=== PATIENT | male | born 1970 | race Caucasian/White ===

== ENCOUNTER 2025-06-27 22:23 | Outpatient (BNV) | payer OTHER, SELFPAY | END 2025-06-28 14:42 | PROVIDERS: Admitting Provider Psychiatry & Neurology Psychiatry; Visit Provider Internal Medicine | DX: I45.10 Unspecified right bundle-branch block (principal); R00.1 Bradycardia, unspecified | CPT/HCPCS: 93010 ==

== ENCOUNTER 2025-06-27 22:23 | Inpatient (IN) | payer OTHER, SELFPAY ==
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
--- OUTSIDE RECORDS SUMMARY | 2025-06-27 22:29 | XMS_ITS | Encounter Summary ---
Author Organization [facility] Address [address] [place] [address] Care Team Providers Care Shipping Receiving Manager Name Role Phone Adalberto Salinas Unavailable ShannanAdalberto garcia Primary Care Provider [phone] Nikita Yao [employer] SPLICER Primary Care Provider [phone] Encounter Details Date Type Department Care Team (Late st Contact Info) Description 06/16/2015 Lab Requisition [facility] [address] [place] [phone] Danna Jade NP [address] [place] [address] Encounter for general adult medical examination without abnormal findings Social History Tobacco Use Types Packs/Day Years Used Date Smoking Tobacco: Every Day Alcohol Use Standard Drinks/Week Comments No 0 (1 standard drink = 0.6 oz pur e alcohol) Sex and Gender Information Value Date Recorded Sex Assigned at Male 05/22/2024 1:18 AM EDT Legal Sex Male 6:53 PM EDT Gender Identity Male 05/22/2024 1:18 AM EDT Sexual Orientation _I choose not to answer 01/27 9:03 AM EDT documented as of this encounter Plan of Treatment Not on file documented as of this encounter Procedures Procedure Name Priority Date/Time Associated Diagnosis Comments URINE CULTURE AND COLONY COUNT Routine 06/16/2015 1:22 PM EDT Encounter for general adult medical examination without abnormal findings documented in this encounter Results * Urine Culture and Wiley Count (06/16/2015 1:22 PM EDT) Culture < 10,000 colonies/ml Mixed Gram Positive Organisms 06/17/2015 2:25 PM EDT [facility] Urine specimen (specimen) Urine specimen obtained by clean catch procedure / Unknown Collection / Unknown 06/16/2015 1:22 PM EDT 06/16/2015 1:22 PM EDT Danna Jade NP MICROBIOLOGY - GENERAL ORDERAB LES Final Result [facility] [address] [place] [address] documented in this encounter Visit Diagnoses Diagnosis Encounter for general adult medical examination without abnormal findings documented in this encounter Care Teams Shipping Receiving Manager Relationship Specialty Start Date End Date Adalberto Salinas [address] [place] [address] PCP - Family Medicine 05/20/15 05/19/21 Adalberto Salinas [address] [place] [address] PCP - General 05/20/15 05/19/21 Nikita Yao NP [address] [place] [address] PCP - General Family Medicine 05/20/21 documented as of this encounter
--- OUTSIDE RECORDS SUMMARY | 2025-06-27 22:29 | XMS_ITS | Clinical Summary ---
Author Organization [employer] Address [address] [facility] [address] [address] [place] [address] Care Team Providers Care Used Car Salesperson Name Role Phone Carlos Rincon DDS Unavailable Unavailable Allergies No known active allergies Medications No known medications Active Problems No known active problems Social History Tobacco Use Types Packs/Day Years Used Date Smoking Tobacco: Every Day Cigarettes Passive Smoke Exposure: Current Smokeless Tobacco: Never Alcohol Use Standard Drinks/Week Comments Yes 0 (1 standard drink = 0.6 oz pur e alcohol) occasioanl Sex and Gender Information Value Date Recorded Sex Assigned at Male 01/31/2023 11:03 AM EDT Legal Sex Male 8:30 PM EDT Gender Identity Male 01/31/2023 11:03 AM EDT Sexual Orientation Straight 06/24/2022 8: 30 PM EDT Last Filed Vital Signs Vital Sign Reading Time Taken Comments Blood Pressure 123/74 08/04/2023 10:21 AM EST Pulse 54 08/04/2023 10:21 AM EST Temperature - - Respiratory Rate - - Oxygen Saturation - - Inhaled Oxygen Concentration - - Weight - - Height - - Body Mass Index - - Plan of Treatment Health Maintenance Due Date Last Done Comments CT Colonography 1970 Colonoscopy 1970 Colorectal Cancer Screening 1970 Dental Prophylaxis 1970 Dental X-Ray: Bitewings 1970 Depression Screening 1970 FIT DNA/Cologuard 1970 FIT 1970 FOBT 1970 Lipid Panel 1970 SDOH Screening 1970 Sigmoidoscopy 1970 Disability Screening 1970 Alcohol/Substance Use Screening 1982 DTaP/Tdap/Td Vaccines (1 - Tdap) 1989 Hepatitis A Vaccines (1 of 2 - Risk 2-dose series) 1989 Hepatitis B Vaccines (1 of 3 - 19+ 3-dose series) 1989 Pneumococcal Vaccine: 50+ Years (1 of 2 - PCV) 1989 Zoster Vaccines (1 of 2) 2020 Dental Oral Exam 11/02/2021 05/04/2021 Dental X-Ray: Full Mouth 05/05/2024 05/04/2021 Tobacco Screening 08/04/2024 08/04/2023 COVID-19 Vaccine (1 - 2023-2 5 season) 2025 Influenza Vaccine (#1) 2025 RSV Patients and Patients Aged 60 years or older (1 - 1-dose 75+ series) 2045 HIV Screening Completed 07/14/2022, 07/09/2019 HIB Vaccines Aged Out No longer eligi ble based on patient's age to complete this topic HPV Vaccines Aged Out No longer eligi ble based on patient's age to complete this topic IPV Vaccines Aged Out No longer eligi ble based on patient's age to complete this topic Meningococcal B Vaccine Aged Out No l onger eligible based on patient's age to complete this topic Meningococcal Vaccine Aged Out No nata nico eligible based on patient's age to complete this topic RSV under 20 months Aged Out No longe r eligible based on patient's age to complete this topic Rotavirus Vaccines Aged Out No longer eligible based on patient's age to complete this topic Procedures Procedure Name Priority Date/Time Associated Diagnosis Comments PANORAMIC RADIOGRAPHIC IMAGE Routine 05/04/2021 12:00 AM EDT COMPREHENSIVE ORAL EVALUATION - NEW OR ESTABLISHED PATIENT Routine 05/04/2021 12:00 AM EDT from Last 3 Months or Most Recently Relevant to Health Maintenance Insurance [address] [place] [id number] [facility] MEDICAID STAND ADULT [address] [place] [address] [address] [place] [address] [address] [place] [address] [address] [place] [address] Care Teams Used Car Salesperson Relationship Specialty Start Date End Date Carlos Rincon DDS Dentist Dental Historical Society Director 01/31/23
--- OUTSIDE RECORDS SUMMARY | 2025-06-27 22:29 | XMS_ITS ---
Author Name [facility] Organization Unknown Encounters Encounter Type Encounter Reason Primary Diagnosis Location Date Emergency Suicidal ideation Suicidal ideation [facility] 06/27/2025 Care Team Organization Name Specialty Phone Email Start Date End Da te [facility] Care 06/27/2025 [facility] Primary Care 1
--- OUTSIDE RECORDS SUMMARY | 2025-06-27 22:29 | XMS_ITS | Encounter Summary ---
Author Organization [facility] Address [address] [place] [address] Care Team Providers Care Education Nurse Name Role Phone Adalberto Salinas Unavailable ShannanAdalberto garcia Primary Care Provider [phone] Nikita Yao SOFTWARE DEVELOPER Primary Care Provider [phone] Encounter Details Date Type Department Care Team (Late st Contact Info) Description 06/17/2015 Lab Requisition [facility] [address] [place] [phone] Danna Jade NP [address] [place] [address] Encounter for general adult medical examination without [...] Procedure Name Priority Date/Time Associated Diagnosis Comments HEPATITIS C QUAL->QUANT->HAJA Routine 06/17/2015 9:54 AM EDT Encounter for general adult medical examination without abnormal findings HEPATITIS C GENOTYPE Routine 06/17/2015 9:54 AM EDT Encounter for general adult medical examination without abnormal findings VITAMIN D 25 HYDROXY Routine 06/17/2015 9:54 AM EDT Encounter for general adult medical examination without abnormal findings URINE COMPLETE Routine 06/17/2015 9:54 AM EDT Encounter for general adult medical examination without abnormal findings CBC AND AUTO DIFFERENTIAL Routine 06/17/2015 9:54 AM EDT Encounter for general adult medical examination without abnormal findings HEMOGLOBIN A1C Routine 06/17/2015 9:54 AM EDT Encounter for general adult medical examination without abnormal findings LIPID PANEL Routine 06/17/2015 9:54 AM EDT Encounter for general adult medical examination without abnormal findings COMPREHENSIVE METABOLIC PANEL Routine 06/17/2015 9:54 AM EDT Encounter for general adult medical examination without abnormal findings documented in this encounter Results * Hepatitis C genotype (06/17/2015 9:54 AM EDT) HCV Genotype, LiPA GENOTYPE 1a 06/25/2015 3:45 PM EDT [facility] Comment:The method used in t his test is RT-PCR and reverse hybridization (Line Probe) of the 5' UTR and core region of the HCV genome. The test was developed and its performance characteristics have been determined by [employer]. It has not been cleared or approved by the U.S. Food and Drug Administration. The FDA has determined that such clearance or approval is not necessary. Performance characteristics refer to the analytical performance of the test.[email or web address] /faq/HCVGenotyping Test(s) performed at: [employer] [facility] M.D., Personal Financial Representative [id number] [place] [id number] CLIA #[id number] Blood specimen (specimen) Venipuncture / Unknown 06/17/2015 9:54 AM EDT 06/22/2015 11:35 AM EDT Danna Jade SOFTWARE DEVELOPER LAB BLOOD ORDERABLES Final Res ult [facility] [address] [place] [address] * Vitamin D 25 hydroxy (06/17/2015 9:54 AM EDT) Pathologist [facility] Vit D, 25-Hydroxy 36.3 30.0 - 75.0 ng/mL 06/18/2015 9:00 AM EDT [facility] Blood specimen (specimen) Venipuncture / Unknown 06/17/2015 9:54 AM EDT 06/17/2015 9:54 AM EDT Narrative [facility] - 06/18/2015 9:00 AM EDT Vitamin D Reference Ranges: Normal 30-75 ng/mL Insufficient 10-30 ng/mL (Most Signif.<20) Deficient <10 ng/mL Potentially Toxic >150 ng/mL Danna Jade SOFTWARE DEVELOPER LAB BLOOD ORDERABLES Final Res ult [facility] [address] [place], [place] * Urine Complete (06/17/2015 9:54 AM EDT) [facility] Clarity, UA Clear Clear 06/17/2015 11:12 AM EDT [facility] Color Yellow Yellow 06/17/2015 11:12 AM EDT [facility] Specific [place] 1.012 1.005 - 1.030 06/17/2015 11:12 AM EDT [facility] pH 6.0 5.0 - 9.0 06/17/2015 11:12 AM EDT [facility] Protein Negative Negative mg/dL 06/17/2015 11:12 AM EDT [facility] Glucose Negative Negative, 150 mg/dL 06/17/2015 11:12 AM EDT [facility] Ketones Negative Negative mg/dL 06/17/2015 11:12 AM EDT [facility] Blood Negative Negative mg/dL 06/17/2015 11:12 AM EDT [facility] Bilirubin UA Negative Negative mg/dL 06/17/2015 11:12 AM T [facility] Urobilinogen Normal Normal mg/dL 06/17/2015 11:12 AM T [facility] Nitrite Negative Negative 06/17/2015 11:12 AM [facility] Leukocyte Esterase Negative Negative Tyrese/uL 06/17/2015 11:12 AM [facility] WBC 0-2 0-2 HPF HPF 06/17/2015 11:12 AM [facility] RBC 0-2 0 - 2 HPF 06/17/2015 11:12 AM [facility] Mucus Few Few HPF 06/17/2015 11:12 AM [facility] Urine specimen (specimen) Urine specimen obtained by clean catch procedure / Unknown Collection / Unknown 06/17/2015 9:54 AM EDT 06/17/2015 9:54 AM EDT Danna Jade NP URINE ORDERABLES Final Result Performing Organization Address City/State/[facility] Co de Phone Number [facility] [address] [place] [address] * Lipid panel (06/17/2015 9:54 AM EDT) Cholesterol 175 0 - 199 mg/dL 06/17/2015 11:41 AM [facility] Triglycerides 70 10 - 200 mg/dL 06/17/2015 11:41 AM T [facility] HDL 69.7 35.0 - 70.0 mg/dL 06/17/2015 11:41 AM [facility] LDL Calculated 91 0 - 100 mg/dL 06/17/2015 11:41 AM [facility] Cardiac Risk Factor 2.5 0.0 - 5.0 06/17/2015 11:41 AM T [facility] Blood specimen (specimen) Venipuncture / Unknown 06/17/2015 9:54 AM EDT 06/17/2015 9:54 AM EDT [facility] - 06/17/2015 11:41 AM EDT CARDIAC RISK FACTOR: Males Females 2X Average Risk 9.6 7.1 3X Average Risk 23.4 11.0 Danna Jade SOFTWARE DEVELOPER LAB BLOOD ORDERABLES Final Res ult Performing Organization Address City/[facility]/ZIP Co de Phone Number [facility] [address] [place] [address] * Hemoglobin A1c (06/17/2015 9:54 AM EDT) Hemoglobin A1C 5.2 4.6 - 6.0 % 06/17/2015 2:30 PM EDT [facility] Estimated Average Glucose eAG 102.5 85.0 - 126.0 mg/dL 06/17/2015 2:30 PM EDT [facility] Blood specimen (specimen) 06/17/2015 9:54 AM EDT 06/17/2015 9:54 AM EDT Danna Jade LAB BLOOD ORDERABLES Final Res ult [facility] [address] [place], [place] * (ABNORMAL) Comprehensive metabolic panel (06/17/2015 9:54 AM EDT) Sodium 139 135 - 145 mEq/L 06/17/2015 11:41 AM EDT [facility] Potassium 4.4 3.3 - 5.2 mEq/L 06/17/2015 11:41 AM EDT [facility] Chloride 104 96 - 107 mEq/L 06/17/2015 11:41 AM EDT [facility] CO2 22(L) 24 - 34 mEq/L 06/17/2015 11:41 AM EDT [facility] Anion Gap 13 4 - 14 mEq/L 06/17/2015 11:41 AM EDT [facility] Glucose 101(H) 70 - 100 mg/dL 06/17/2015 11:41 AM T [facility] Creatinine 0.81 0.60 - 1.50 mg/dL 06/17/2015 11:41 AM EDT [facility] eGFR >60 60 - 115 mL/min 06/17/2015 11:41 AM [facility] BUN 13 6 - 26 mg/dL 06/17/2015 11:41 AM T [facility] Calcium 10.2 8.7 - 10.5 mg/dL 06/17/2015 11:41 AM [facility] Total Protein 8.3 6.4 - 8.6 g/dL 06/17/2015 11:41 AM [facility] Albumin 5.1(H) 3.4 - 4.8 g/dL 06/17/2015 11:41 AM [facility] A/G Ratio 1.6 1.0 - 2.3 06/17/2015 11:41 AM [facility] Total Bilirubin 0.5 0.2 - 1.2 mg/dL 06/17/2015 11:41 AM [facility] AST 15 0 - 40 U/L 06/17/2015 11:41 AM [facility] Alkaline Phosphatase 83 40 - 150 IU/L 06/17/2015 11:41 AM [facility] ALT 19 0 - 45 U/L 06/17/2015 11:41 AM [facility] Blood specimen (specimen) Venipuncture / Unknown 06/17/2015 9:54 AM EDT 06/17/2015 9:54 AM EDT us Danna Jade NP LAB BLOOD ORDERABLES Final Res ult [facility] [address] [place] [address] * CBC and Auto Differential (06/17/2015 9:54 AM EDT) WBC 10.5 4.8 - 11.2 10*3/mL 06/17/2015 11:13 AM [facility] Comment: RBC 5.13 4.00 - 5.90 10*6/ L 06/17/2015 11:13 AM [facility] HGB 15.9 14.0 - 17.2 g/dL 06/17/2015 11:13 AM EDT [facility] HCT 45.5 40.0 - 52.0 % 06/17/2015 11:13 AM EDT [facility] MCV 88.7 82.0 - 98.0 fL 06/17/2015 11:13 AM EDT [facility] MCH 30.9 27.0 - 35.0 uug 06/17/2015 11:13 AM EDT [facility] MCHC 34.9 32.0 - 37.0 g/dL 06/17/2015 11:13 AM EDT [facility] RDW 13.6 9.0 - 17.9 % 06/17/2015 11:13 AM T [facility] PLT 230 150 - 400 10*3/mL 06/17/2015 11:13 AM [facility] MPV 8.8 fL 06/17/2015 11:13 AM T [facility] Neut % 55.5 45.0 - 85.0 % 06/17/2015 11:13 AM EDT [facility] Lymph % 36.9 15.0 - 45.0 % 06/17/2015 11:13 AM T [facility] Posey % 4.9 0.0 - 12.0 % 06/17/2015 11:13 AM T [facility] Eos % 2.1 0.0 - 7.0 % 06/17/2015 11:13 AM [facility] Baso % 0.6 0.0 - 3.0 % 06/17/2015 11:13 AM T [facility] Neut # 5.8 10*3 06/17/2015 11:13 AM [facility] NRBC% 0 0 /100 WBC /100 WBC 06/17/2015 11:13 AM [facility] Blood specimen (specimen) Venipuncture / Unknown 06/17/2015 9:54 AM EDT 06/17/2015 9:54 AM EDT us Danna Jade NP LAB BLOOD ORDERABLES Final Res ult [facility] [address] [place] [address] * (ABNORMAL) Hepatitis C Qualitative to Quantitative to Genotype (06/17/2015 9:54 AM EDT) HCV RNA Qualitative Detected( A) Non-detec christie 06/22/2015 11:35 AM EDT [facility] HCV Quantitative (PCR) 15,400,00 0(H) 0 - 15 IU/mL 06/22/2015 11:35 AM EDT [facility] Comment:Viral load result is > 1000 IU/mL. HCV Genotype has been sent to the reference laboratory for testing. HCV (Log) 7.19 log (10) 06/22/2015 11:35 AM EDT [facility] Blood specimen (specimen) Venipuncture / Unknown 06/17/2015 9:54 AM EDT 06/17/2015 9:54 AM EDT Narrative [facility] - 06/22/2015 11:35 AM EDT This test was performed using [employer] Ampliprep/Taqman HCV Test Kit ([employer] which is FDA approved and employs real time PCR methodology. Danna Jade NP LAB BLOOD ORDERABLES Final Res ult [facility] [address] [place], [place] documented in this encounter Visit Diagnoses Diagnosis Encounter for general adult medical examination without abnormal findings documented in this encounter Care Teams Education Nurse Relationship Specialty Start Date End Date Adalberto Salinas [address] [place] [address] PCP - Family Medicine 05/20/15 05/19/21 Adalberto Salinas [address] [place] [address] PCP - General 05/20/15 05/19/21 Nikita Yao NP [address] [place] [address] PCP - General Family Medicine 05/20/21 documented as of this encounter
--- OUTSIDE RECORDS SUMMARY | 2025-06-27 22:29 | XMS_ITS | Encounter Summary ---
Author Organization [facility] Address [address] [place] [address] Care Team Providers Care Manager Of Software Development Name Role Phone DavidAdalberto thacker Unavailable BradSuzetteis Primary Care Provider Nikita Yao LEADER TIER Primary Care Provider [phone] Encounter Details Date Type Department Care Team (Late st Contact Info) Description 08/12/2015 Lab Requisition [address] [phone] Ra Nunez MD [address] [place] [address] Combinations of drug dependence excluding opioid type drug, continuous Social History Tobacco Use Types Packs/Day Years [...] Procedure Name Priority Date/Time Associated Diagnosis Comments CBC AND AUTO DIFFERENTIAL Routine 08/12/2015 10:00 AM EST Combinations of drug dependence excluding opioid type drug, continuous HEPATIC FUNCTION PANEL Routine 08/12/2015 10:00 AM EST Combinations of drug dependence excluding opioid type drug, continuous documented in this encounter Results * CBC and Auto Differential (08/12/2015 10:00 AM EST) WBC 10.2 4.8 - 11.2 10*3/mL 08/12/2015 7:47 PM EST [facility] RBC 5.22 4.00 - 5.90 10*6/ L 08/12/2015 7:47 PM [facility] HGB 15.7 14.0 - 17.2 g/dL 08/12/2015 7:47 PM [facility] HCT 47.0 40.0 - 52.0 % 08/12/2015 7:47 PM [facility] MCV 90.1 82.0 - 98.0 fL 08/12/2015 7:47 PM [facility] MCH 30.2 27.0 - 35.0 uug 08/12/2015 7:47 PM [facility] MCHC 33.5 32.0 - 37.0 g/dL 08/12/2015 7:47 PM [facility] RDW 13.8 9.0 - 17.9 % 08/12/2015 7:47 PM [facility] PLT 301 150 - 400 10*3/mL 08/12/2015 7:47 PM [facility] MPV 8.9 fL 08/12/2015 7:47 PM [facility] Neut % 57.7 45.0 - 85.0 % 08/12/2015 7:47 PM [facility] Lymph % 32.6 15.0 - 45.0 % 08/12/2015 7:47 PM EST [facility] [place] % 6.5 0.0 - 12.0 % 08/12/2015 7:47 PM [facility] Eos % 1.7 0.0 - 7.0 % 08/12/2015 7:47 PM [facility] Baso % 1.5 0.0 - 3.0 % 08/12/2015 7:47 PM [facility] Neut # 5.9 10*3 08/12/2015 7:47 PM [facility] NRBC% 0 0 /100 WBC /100 WBC 08/12/2015 7:47 PM [facility] Blood specimen (specimen) Venipuncture / Unknown 08/12/2015 10:00 AM EST 08/12/2015 7:29 PM EST Ra Nunez MD LAB BLOOD ORDERABLES Final Result [facility] [address] [place] [address] * (ABNORMAL) Hepatic function panel (08/12/2015 10:00 AM EST) Albumin 5.1(H) 3.4 - 4.8 g/dL 08/12/2015 8:47 PM [facility] Total Bilirubin 0.5 0.2 - 1.2 mg/dL 08/12/2015 8:47 PM [facility] Bilirubin, Direct 0.1 0.0 - 0.3 mg/dL 08/12/2015 8:47 PM [facility] AST 21 0 - 40 U/L 08/12/2015 8:47 PM [facility] ALT 19 0 - 45 U/L 08/12/2015 8:47 PM [facility] Total Protein 7.9 6.4 - 8.6 g/dL 08/12/2015 8:47 PM [facility] Alkaline Phosphatase 85 40 - 150 IU/L 08/12/2015 8:47 PM [facility] Blood specimen (specimen) Venipuncture / Unknown 08/12/2015 10:00 AM EST 08/12/2015 7:29 PM EST us aR Nunez MD LAB BLOOD ORDERABLES Final Result Performing Organization Address [facility]/ZIP Co de Phone Number [facility] [address] [place] [phone] documented in this encounter Visit Diagnoses Diagnosis Combinations of drug dependence excluding opioid type drug, continuous (HCC) Combinations of drug dependence excluding opioid type drug, continuous documented in this encounter Care Teams Manager Of Software Development Relationship Specialty Start Date End Date ShannanAdalberto garcia [address] [place] [address] PCP - Family Medicine 05/20/15 05/19/21 Brad Adalberto [address] [place] [address] PCP - General 05/20/15 05/19/21 Nikita Yao NP [address] [place] [address] PCP - General Family Medicine 05/20/21 documented as of this encounter
--- OUTSIDE RECORDS SUMMARY | 2025-06-27 22:29 | XMS_ITS | Encounter Summary ---
Author Organization [facility] Address [address] [place] [address] Care Team Providers Care Delivery Technician Name Role Phone ShannanSuzette garciais Unavailable Adalberto Salinas Primary Care Provider Nikita Yao LEGAL CASHIER Primary Care Provider [phone] Reason for Referral * Diagnostic (Routine) - Closed Specialty Diagnoses / Procedures Referred By Ishan israel Referred To Contact Radiology Diagnoses Left foot pain Chronic toe pain, left foot Procedures X-ray foot left 3+ views Tiffanie Anderson NP [address] [place] [address] Phone: tel: fax: Referral ID Status Reason Start Date Expiration Date Visits Re quested Visits Authorized [id number] Closed 05/19/2021 05/19/2023 1 1 Encounter Details Date Type Department Care Team (Late st Contact Info) Description 05/19/2021 Ancillary Orders [facility] [address] [place] [phone] Tiffanie Anderson NP [address] [place] [address] Left foot pain; Chronic toe pain, left foot Social History Tobacco Use Types Packs/Day Years Used Date Smoking Tobacco: Every Day Cigarettes Smokeless Tobacco: Never Alcohol Use Standard Drinks/Week Comments No 0 [...] on file documented as of this encounter Results * X-ray foot left 3+ views (05/20/2021 11:09 AM EDT) Anatomical Region Laterality Modality Foot, Ortho Foot Digital Radiogr aphy 05/20/2021 4:03 PM EDT Impressions 05/20/2021 4:04 PM EDT FINDINGS/IMPRESSION: AP, lateral, and oblique views demonstrate chronic appearing fracture deformities of the second through fourth metatarsal necks. No acute fracture visualized. No dislocation. Mild degenerative changes at the first MTP and IP joints. No significant soft tissue swelling. Narrative 05/20/2021 4:04 PM EDT LEFT FOOT, THREE VIEWS INDICATION: Left foot and great toe pain after dropping a 20 pound weight on foot COMPARISON: None Procedure Note Fred Sommers MD - 05/20/2021 LEFT FOOT, THREE VIEWS INDICATION: Left foot and great toe pain after dropping a 20 pound weighton foot COMPARISON: None FINDINGS/IMPRESSION: AP, lateral, and oblique views demonstrate chronicappearing fracture deformities of the second through fourth metatarsalnecks. No acute fracture visualized. No dislocation. Mild degenerativechanges at the first MTP and IP joints. No significant soft tissue swelling. us Tiffanie Anderson LEGAL CASHIER IMG DIAGNOSTIC IMAGING ORDERA BLES Final Result documented in this encounter Visit Diagnoses Diagnosis Left foot pain Pain in soft tissues of limb Chronic toe pain, left foot Left foot pain Pain in soft tissues of limb Chronic toe pain, left foot documented in this encounter Care Teams Delivery Technician Relationship Specialty Start Date End Date ShannanAdalberto garcia [address] [place] [address] PCP - Family Medicine 05/20/15 05/19/21 Adalberto Salinas [address] [place] [address] PCP - General 05/20/15 05/19/21 Nikita Yao NP [address] [place] [address] PCP - General Family Medicine 05/20/21 documented as of this encounter
--- OUTSIDE RECORDS SUMMARY | 2025-06-27 22:29 | XMS_ITS | Patient Health Record ---
Author Organization [facility] Address [address] [place] [address] Care Team Providers Care Radio Technician Name Role Phone Danna Jade Primary Care Provider Olu rodney MccollumhildaNora Unavailable [phone] Conrad Domingo DO Unavailable Unavailable Allergies No Known Allergies Reason For Referral No Information Medications Medication SIG (Take, Route, Frequency, Duration) Notes Start Date End Date Status SEROquel Not-Taking ROBAXIN (METHOCARBAMOL) Not-Taking Lyrica 225 MG 1 capsule Orally Twi ce a day; Duration: 30 days 11/24/2016 Not-Takin g Lyrica 200 TAKE ONE CAPSULE BY MOUTH THREE TIMES DAILY; Duration: 30 Not-Taking Lyrica 200 mg 1 capsule Orally tid ; Duration: 30 days 07/21/2015 Not-Taking Gabapentin 600 mg 1 tablet Orally Thre e times a day; Duration: 30 day(s) 11/23/2015 Not-Taking Gabapentin 800 MG 1 tablet Orally Thre e times a day; Duration: 30 day(s) 03/01/2016 Not-Taking Amitriptyline HCl 25 MG 1 tablet Orally Once a day; Duration: 30 day(s) 02/24/2016 Not-Audi ing Lyrica 150 MG 1 capsule Orally Onc e a day; Duration: 30 days 03/01/2016 Not-Takin g None N/A Active Social History Tobacco Use: Social History Observation Description Date Details (start date - stop date) Current Smoker NA - NA Tobacco Use/Smoking Question Answer Notes Patient is a: current smoker Section Notes: ALCOHOL IN HS, CIGARETTES X YRS , 20 YRS , DRUGS /-/ TRASH COLLECTION- EGG TESTER , NOT WORKING , DISABLED +, X 1 YR, ALCOHOL IN HS, CIGARETTES X YRS , 20 YRS , DRUGS /-/ TRASH COLLECTION- EGG TESTER , NOT WORKING , DISABLED +, X 1 YR, ALCOHOL IN HS, CIGARETTES X YRS , 20 YRS , DRUGS /-/ TRASH COLLECTION- EGG TESTER , NOT WORKING , DISABLED +, X 1 YR, ALCOHOL IN HS, CIGARETTES X YRS , 20 YRS , DRUGS /-/ TRASH COLLECTION- EGG TESTER , NOT WORKING , DISABLED +, X 1 YR, ALCOHOL IN HS, CIGARETTES X YRS , 20 YRS , DRUGS /-/ TRASH COLLECTION- EGG TESTER , NOT WORKING , DISABLED +, X 1 YR, ALCOHOL IN HS, CIGARETTES X YRS , 20 YRS , DRUGS /-/ TRASH COLLECTION- EGG TESTER , NOT WORKING , DISABLED +, X 1 YR, Problems Problem Type SNOMED Code ICD Code Onset Dates Problem Status W/U Status Risk Notes Problem Skin sensation disturbance (40355240) Numbness and tingling (R20.2) Active confirmed WHILE LUMBAR RADIC IS POSSIBLY THE CASE , POLYNEUROPATHY NEEDS TO BE THOUGHT OF Problem Fatty liver (966050959) Fatty liver (K76.0) Active confirmed Problem Neck pain (72395912) Neck pain (M54.2) Active confirmed Problem Poor sleep pattern (845910216) Poor sleep pattern (G47.8) Active confirmed PAIN BUT INFLUENCE OF THE MARY POSSIBLE Problem MRI Scan Abnormal (253436096) Abnormal MRI (R93.8) Active confirmed LUMBAR SPONDYLOSIS BUT 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 Problem Snoring (14431048) Snoring (R06.83) Active confirmed SLEEP APNEA POSSIBLE Problem Chronic hepatitis C (725414418) Chronic hepatitis C (B18.2) Active confirmed Problem Noncompliance with treatment (3692775) Noncompliance (Z91.19) Active confirmed Problem History of polyp of colon (situation) (317959902) History of colon polyps (Z86.010) Active confirmed Problem Tinea pedis (8036241) Tinea pedis of both feet (B35.3) Active confirmed TAKEN CARE OF BY PCP Problem Hyperreflexia (45005860) Hyperreflexia (R29.2) Active confirmed Problem Magnetic resonance imaging of cervical spine abnormal (finding) (499872274) Abnormal MRI, neck (R93.8) Active confirmed Problem Sciatica (03651029) Bilateral low back pain with right-sided sciatica (M54.41) Active confirmed Problem Chronic hepatitis C (866756962) Chronic hepatitis C without hepatic coma (B18.2) Active confirmed Problem History of polyp of colon (situation) (243235636) History of colonic polyps (Z86.010) Active confirmed Problem Pain in limb (08303246) Pain, lower extremity (M79.606) Active confirmed IS WORSE , Problem Chronic viral hepatitis B without delta-agent (116772348) Chronic viral hepatitis B without delta agent and without coma (B18.1) Active confirmed Problem Attention deficit disorder (86315615) Attention deficit disorder (F98.8) Active confirmed SEES PSYCHIATRIST AND FOR DEPRESSION Problem Hepatic fibrosis (39720277) Hepatic fibrosis (K74.00) Active confirmed Plan Of Treatment Pending Test Test Name Order Date EMG 02/24/2016 EMG 11/23/2015 EMG 07/21/2015 Sleep Study Diagnostic Study 11/23/2015 Sleep Study Diagnostic Study 02/24/2016 ULTRASOUND ABDOMEN COMPLETE 12/21/2022 Future Test Test Name Order Date MRI CERVICAL SPINE 07/21/2015 Hemoglobin A1C([facility]) 07/28/2015 TSH([facility]) 07/28/2015 Vitamin D, 25 Hydroxy([facility]) 2014 VITAMIN B12 ([facility]) 07/28/2015 FOLATE (Folic Acid) ([facility]) 015 RPR (MONITOR) W/REFL TITER 07/28/2015 T4 FREE 07/28/2015 IMMUNOFIXATION, URINE 07/28/2015 PROTEIN, TOTAL AND PROTEIN ELECTROPHORES IS 07/28/2015 FOLATE, RBC 07/28/2015 T4 (THYROXINE) ANTIBODY 07/28/2015 VITAMIN D, 1,25 DIHYDROXY LC/MS/MS 07/28 LYME DISEASE ANTIBODIES (IgG, IgA, IgM) WITH REFLEX TO WB, MISCELLANEOUS 07/28/2015 EMG / LEGS 11/24/2016 COLONOSCOPY 11/07/2022 CMP/HEPATIC([facility]) 05/12/2023 HCV RNA, QUANTITATIVE REAL TIME PCR (Hep atitis C Viral Load) 05/12/2023 CBC with Differential (AUTO) 05/12/2023 CMP/HEPATIC([facility]) 05/16/2023 HCV RNA, QUANTITATIVE REAL TIME PCR (Hep atitis C Viral Load) 05/16/2023 CBC with Differential (AUTO) 05/16/2023 CMP/HEPATIC([facility]) 08/18/2023 HCV RNA, QUANTITATIVE REAL TIME PCR (Hep atitis C Viral Load) 08/18/2023 CBC with Differential (AUTO) 08/18/2023 Insurance Providers Payer Name Payer Address Payer Phone Subscriber Number Group Number Insured Name Patient Relationship to Insured Coverage Start Date Coverage End Date Pradeep stevens [facility] Sk[employer] Plan [address] [address] [place], [place] [id number] [facility] Lawrence Pressley Self - patient is the insured 9 Pradeep stevens [facility] Sk[employer] Mom Plan [address] [address] [place], [place] [id number] Lawrence Pressley Self - patient is the insured Medicaid [address] [place] [address] [id number] Lawrence Pressley Self - patient is the insured Medical (General) History Medical History History ICD Code ARTRITIS
--- OUTSIDE RECORDS SUMMARY | 2025-06-27 22:29 | XMS_ITS | Clinical Summary ---
Author Organization [facility] Address [address] [place] [address] Care Team Providers Care Console Assembler Name Role Phone Elmer Jade CARTRIDGE LOADING OPERATOR Primary Care Provider [phone] Allergies No known active allergies Medications methadone (METHADOSE) 40 mg disintegrating tablet Take 2.625 tablets (105 mg total) by mouth once daily. Last dosed at [facility] 06/27/25 @0549 w/ 105 mg. Verified w/ Margie @[facility] [phone] Active pregabalin (LYRICA) 150 MG capsule Take 1 (one) capsule (150 mg total) by mouth 3 (three) times a day. Active Encounters Date Type Department Care Team Description 06/27/2025 11:48 AM EDT - 06/27/2025 8:41 PM EDT Emergency [facility] Emergency Medicine [address] [place] [phone] Dennis Reis MD Pettit, Catherine C, MD Suicidal ideation (Primary Dx) Discharge Disposition: Psychiatric Hospital with Planned Acute Inpatient Readmission from Last 3 Months Social History Tobacco Use Types Packs/Day Years Used Date Smoking Tobacco: Never Assessed [facility] Utilities Answer Date Recorded In the past 12 months has th e electric, gas, oil, or water company threatened to shut off services in your [...] any time in the past 12 m [facility], were you homeless or living in a usp (including now)? Yes 06/27/2025 Sex and Gender Information Value Date Recorded Sex Assigned at Male 02/20/2025 5:11 PM EDT Legal Sex Male 5:11 PM EDT Gender Identity Not on file Sexual Orientation Not on file Last Filed Vital Signs Vital Sign Reading Time Taken Comments Blood Pressure 139/85 06/27/2025 11:55 AM EDT Pulse 99 06/27/2025 11:55 AM EDT Temperature 36.7 C (98 F) 06/27/2025 11:55 AM EDT Respiratory Rate 16 06/27/2025 11:55 AM EDT Oxygen Saturation 91% 06/27/2025 11:55 AM EDT Inhaled Oxygen Concentration - - Weight 88.5 kg (195 lb) 07/31/2019 6:41 AM EST Height 170.2 cm (5' 7 ) 06/27/2025 11:55 AM EDT Body Mass Index 27.2 07/31/2019 6:41 AM EST Plan of Treatment Health Maintenance Due Date Last Done Comments DTAP/TDAP/TD VACCINES (1 - Tdap) 11/22/1999 COLONOSCOPY ([facility]) 11/22/2015 COLORECTAL CANCER SCREENING (CRC) 11/22/2015 CT COLONOGRAPHY (CRC) 11/22/2015 FIT-DNA (CRC) 11/22/2015 FIT/iFOBT (CRC) 11/22/2015 SIGMOIDOSCOPY (CRC) 11/22/2015 PNEUMOCOCCAL VACCINE: 50+ YE ARS (1 of 1 - PCV) 2020 ZOSTER VACCINE (1 of 2) 2020 INFLUENZA VACCINE (#1) 2025 COVID-19 IMMUNIZATION (1 - 2 024-25 season) 2025 RSV IMMUNIZATION (1 - 1-dose 75+ series) 2045 IPV VACCINES Aged Out No longer eligi ble based on patient's age to complete this topic MENINGOCOCCAL B VACCINE Aged Out No l onger eligible based on patient's age to complete this topic Procedures Procedure Name Priority Date/Time Associated Diagnosis Comments ETHANOL LEVEL STAT 06/27/2025 12:30 PM EDT HEPATIC FUNCTION PANEL STAT 06/27/2025 12:30 PM EDT CBC WITH DIFF STAT 06/27/2025 12:30 PM EDT BASIC METABOLIC PANEL STAT 06/27/2025 12:30 PM EDT from Last 3 Months Results * (ABNORMAL) Basic Metabolic Panel (06/27/2025 12:30 PM EDT) Glucose 165(H) 67 - 99 MG/DL 06/27/2025 1:10 PM EDT [facility] BUN 12 6 - 24 MG/DL 06/27/2025 1:10 PM EDT [facility] Creat Level 1.20 0.64 - 1.27 MG/DL 06/27/2025 1:10 PM EDT [facility] eGFR 72(L) >90 mL/min/1.7 3m exp2 06/27/2025 1:10 PM EDT [facility] Comment:Calculated using the CKD-epi 2020 race-free equation. BUN Creatinine Ratio 10 06/27/2025 1:10 PM EDT [facility] Sodium 140 135 - 145 mEq/L 06/27/2025 1:10 PM EDT [facility] Potassium 4.2 3.6 - 5.1 mEq/L 06/27/2025 1:10 PM EDT [facility] Chloride 101 98 - 110 mEq/L 06/27/2025 1:10 PM EDT [facility] CO2 23 20 - 29 mEq/L 06/27/2025 1:10 PM EDT [facility] Anion Gap 16(H) 3 - 13 06/27/2025 1:10 PM EDT [facility] Calcium 9.9 8.4 - 10.2 MG/DL 06/27/2025 1:10 PM EDT [facility] Blood 06/27/2025 12:3 0 PM EDT 06/27/2025 12:45 PM EDT Dennis Reis MD LAB BLOOD ORDERABLES Final Resul t [facility] [address] [place] [address], [facility] [address] [place] [address] * (ABNORMAL) CBC WITH DIFF (06/27/2025 12:30 PM EDT) WBC 10.9(H) 4.2 - 10.0 w66zlc3/L 06/27/2025 12:49 PM EDT [facility] RBC 5.10 4.50 - 5.60 w26qql44/ L 06/27/2025 12:49 PM EDT [facility] Hemoglobin 15.5 13.4 - 16.0 g/dL 06/27/2025 12:49 PM EDT [facility] Hematocrit 46.1 41.2 - 51.0 % 06/27/2025 12:49 PM EDT [facility] MCV 90.4 85.2 - 100.2 fL 06/27/2025 12:49 PM EDT [facility] MCH 30.4 27.0 - 32.4 pg 06/27/2025 12:49 PM EDT [facility] MCHC 33.6 29.5 - 34.2 g/dL 06/27/2025 12:49 PM EDT [facility] RDW 13.1 11.8 - 14.4 % 06/27/2025 12:49 PM EDT [facility] Platelets 224 168 - 382 p65onv4/L 06/27/2025 12:49 PM EDT [facility] MPV 10.4 9.6 - 12.5 fL 06/27/2025 12:49 PM EDT [facility] NRBC % 0.0 -1.0 - 0.0 % 06/27/2025 12:49 PM EDT [facility] NRBC (absolute) 0.0 o60cwz2/L 12:49 PM EDT [facility] Immature Granulocytes % 0.3 % 06/27/2025 12:49 PM EDT [facility] Immature Granulocytes (absolute) 0.0 0.0 - 0.1 j35sxv9/L 06/27/2025 12:49 PM EDT [facility] Seg Neutrophil % 52.8 % 06/27/20 12:49 PM EDT [facility] Seg Neutrophil (absolute) 5.7 1.9 - 6.7 v54gva0/L 06/27/2025 12:49 PM EDT [facility] Lymphocyte % 37.0 % 06/27/2025 12:49 PM EDT [facility] Lymphocyte (absolute) 4.0(H) 1.0 - 3.3 u58jlo8/L 06/27/2025 12:49 PM EDT [facility] Monocyte % 5.4 % 06/27/2025 12:49 PM EDT [facility] Monocyte (absolute) 0.6 0.3 - 0.9 z93xlx6/L 06/27/2025 12:49 PM EDT [facility] Eosinophil % 3.9 % 06/27/2025 12:49 PM EDT [facility] Eosinophil (absolute) 0.4 0.0 - 0.4 x05nie4/L 06/27/2025 12:49 PM EDT [facility] Basophil % 0.6 % 06/27/2025 12:49 PM EDT [facility] Basophil (absolute) 0.1 0.0 - 0.1 k70uhk2/L 06/27/2025 12:49 PM EDT [facility] 06/27/2025 12:3 0 PM EDT 06/27/2025 12:45 PM EDT us Dennis Reis MD LAB BLOOD ORDERABLES Final Resul t Performing Organization Address City/[facility] Co de Phone Number [facility] [address] [place] [phone], [facility] [address] [place] [address] * Ethanol Level (06/27/2025 12:30 PM EDT) Ethanol Level Not Detected Not Detected MG/DL 06/27/2025 1:10 PM EDT [facility] Blood 06/27/2025 12:3 0 PM EDT 06/27/2025 12:45 PM EDT us Dennis Reis MD LAB BLOOD ORDERABLES Final Resul t Performing Organization Address [facility] de Phone Number [facility] [address] [place] [phone], [facility] [address] [place] [phone] * Hepatic Function Panel (06/27/2025 12:30 PM EDT) Albumin 4.8 3.4 - 5.1 G/DL 06/27/2025 1:10 PM EDT [facility] Bilirubin, Total 0.4 0.1 - 1.2 mg/dL 06/27/2025 1:10 PM EDT [facility] Bilirubin, Direct <0.1 0.0 - 0.4 MG/DL 06/27/2025 1:10 PM EDT [facility] Alkaline Phosphatase 88 40 - 129 U/L 06/27/2025 1:10 PM EDT [facility] Protein, Total 8.0 6.1 - 8.3 g/dL 06/27/2025 1:10 PM EDT [facility] ALT 24 14 - 63 U/L 06/27/2025 1:10 PM EDT [facility] AST (SGOT) 28 15 - 41 U/L 06/27/2025 1:10 PM EDT [facility] Blood 06/27/2025 12:3 0 PM EDT 06/27/2025 12:45 PM EDT us Dennis Reis MD LAB BLOOD ORDERABLES Final Resul t [facility] [address] [place] [address], [facility] [address] [place] [address] from Last 3 Months Insurance [facility] Care Teams Console Assembler Relationship Specialty Start Date End Date Elmer Jade NP [address] [place] [id number] PCP - General 12/26/24
--- OUTSIDE RECORDS SUMMARY | 2025-06-27 22:29 | XMS_ITS | Clinical Summary ---
Author Organization [facility] Address [address] [place] [address] Care Team Providers Care Associate Field Service Engineer Name Role Phone Nkiita Yao INSULATION POWER UNIT TENDER Primary Care Provider Allergies No known active allergies Medications Multiple Vitamin (MULTIVITAMIN) tablet Take 1 tablet by mouth daily. Active QUEtiapine (SEROquel) 300 MG tablet Take 400 mg by mouth at bedtime Active venlafaxine (EFFEXOR-XR) 75 MG extended release capsule Take 150 mg by mouth daily. Active lamoTRIgine (LaMICtal) 25 MG tablet Take 1 tablet (25 mg total) by mouth daily 30 tablet 9 Active folic acid (FOLVITE) 1 MG tablet Take 1 tablet (1 mg total) by mouth daily 30 tablet 9 Active PHENobarbital (LUMINAL) 64.8 MG tabletIndicatio ns:Alcohol withdrawal syndrome, with delirium (HCC) Take 1 tab PO BID x 1 day, then 1 tab PO daily x 2 days 4 tablet 9 Active thiamine 100 MG tablet Take 1 tablet (100 mg total) by mouth daily 30 tablet 9 Active sucralfate (CARAFATE) 1 g tablet Take 1 tablet (1 g total) by mouth 4 (four) times a day for 10 days 40 tablet 5 Active omeprazole 20 MG delayed release capsule Take 2 capsules (40 mg total) by mouth every morning before breakfast for 21 days 42 capsule 5 Active Active Problems Problem Noted Date Diagnosed Date Staphylococcal pneumonia, left 07/05/2019 Staphylococcus epidermidis bacteremia 07/05/2019 Sepsis without acute organ dysfunction 9 On mechanically assisted ventilation 07/01/2019 Alcoholic hepatitis without ascites 07/01/2019 Alcohol withdrawal syndrome, with delirium 07/01 Alcohol intoxication 06/29/2019 Hepatitis C 08/25/2014 Encounters Date Type Department Care Team Description 05/30/2025 9:40 AM EDT Lab [facility] [address] [place] [phone] Unspecified viral hepatitis C without hepatic coma; Polyneuropathy, unspecified; Pain in right hip; Bipolar disorder, unspecified (HCC) from Last 3 Months Immunizations Immunization Administration Dates Next Due Influenza, Adult 06/28/2019 Family History Medical History Relation Name Comments Cancer Maternal Grandmother Relation Name Status Comments Maternal Grandmother Social History Tobacco Use Types Packs/Day Years Used Date Smoking Tobacco: Every Day Cigarettes Smokeless Tobacco: Never Tobacco Cessation:Ready to Q uit: Yes Alcohol Use Standard Drinks/Week Comments No 0 (1 standard drink = 0.6 oz pur e alcohol) Sex and Gender Information Value Date Recorded Sex Assigned at Male 05/22/2024 1:18 AM EDT Legal Sex Male 6:53 PM EDT Gender Identity Male 05/22/2024 1:18 AM EDT Sexual Orientation _I choose not to answer 01/27 9:03 AM EDT Last Filed Vital Signs Vital Sign Reading Time Taken Comments Blood Pressure 113/82 01/27/2025 11:00 AM EDT Pulse 57 01/27/2025 10:30 AM EDT Temperature 36.2 C (97.2 F) 01/27/2025 8:37 AM EDT Respiratory Rate 16 01/27/2025 10:30 AM EDT Oxygen Saturation 99% 01/27/2025 11:00 AM EDT Inhaled Oxygen Concentration - - Weight 104 kg (230 lb) 01/27/2025 8:37 AM EDT Height 180.3 cm (5' 11 ) 01/27/2025 8:37 AM EDT Body Mass Index 32.08 01/27/2025 8:37 AM EDT Plan of Treatment Health Maintenance Due Date Last Done Comments Annual Physical 1973 Hepatitis B Screening 1988 DTaP,Tdap,and Td Vaccines (1 - Tdap) 1989 Hepatitis A Vaccine (1 of 2 - Risk 2-dose series) 1989 Pneumococcal Vaccines 50+ yr s (1 of 2 - PCV) 1989 CT Colonography 11/22/2015 FIT-DNA 11/22/2015 FOBT 11/22/2015 Sigmoidoscopy 11/22/2015 Zoster Standard Vaccine (1 o f 2) 2020 COVID-19 Vaccine (1 - 2023-2 5 season) 2025 Influenza Vaccine (#1) 2025 06/28/2019 Colonoscopy 04/29/2025 04/29/2015, 04/28/2015 Colorectal Cancer Screening 04/29/2025 Cholesterol Screening 07/14/2027 07/14/2022 , 06/17/2015 HIB Vaccines Aged Out No longer eligi ble based on patient's age to complete this topic Procedures Procedure Name Priority Date/Time Associated Diagnosis Comments MICROALBUMIN WITH CREAT, RANDOM URINE Routine 05/30/2025 9:36 AM EDT Unspecified viral hepatitis C without hepatic coma Polyneuropathy, unspecified Pain in right hip Bipolar disorder, unspecified (HCC) LIPID PANEL Routine 07/14/2022 9:38 AM EST Chronic viral hepatitis C (HCC) Pain in right hip COLONOSCOPY DIAGNOSTIC Routine 04/29/2015 10:59 AM EDT from Last 3 Months or Most Recently Relevant to Health Maintenance Results * Microalbumin with Creat, Random Urine (05/30/2025 9:36 AM EDT) Microalb, Ur <0.3 0.0 - 1.9 mg/dL 05/30/2025 1:54 PM EDT [facility] Creatinine, Ur 53.0 20.0 - 400.0 mg/dL 05/30/2025 1:54 PM EDT [facility] Microalb Creat Ratio 05/30/2025 1:54 PM EDT [facility] Comment:Ratio not calculated due to Microalbumin <0.3 mg/dl Urine Urine specimen obtained by clean catch procedure / Unknown Collection / Unknown 05/30/2025 9:36 AM EDT 05/30/2025 9:36 AM EDT us Edgar Ibrahim MD URINE ORDERABLES Final Result Performing Organization Address City/[facility]/ZIP Co de Phone Number [facility] [address] [place] [address] * (ABNORMAL) Lipid panel (07/14/2022 9:38 AM EST) Cholesterol 168 <200 mg/dL 07/14/2022 1:39 PM EST [facility] Triglycerides 175(H) <150 mg/dL 07/14/2022 1:39 PM EST [facility] HDL 49.5(L) >=60.0 mg/dL 07/14/2022 1:39 PM EST [facility] LDL Calculated 84 0 - 100 mg/dL 07/14/2022 1:39 PM EST [facility] Cardiac Risk Factor 3.4 0.0 - 5.0 07/14/2022 1:39 PM EST [facility] Blood specimen (specimen) Venipuncture / Unknown 07/14/2022 9:38 AM EST 07/14/2022 9:38 AM EST Narrative [facility] - 07/14/2022 1:39 PM EST Cardiac Risk Factor: Males Females 2x Average Risk 9.6 7.1 3x Average Risk 23.4 11.0 us Elmer Jade NP LAB BLOOD ORDERABLES Final Resul t Performing Organization Address City/[facility]/ZIP Co de Phone Number [facility] [address] [place] [address] from Last 3 Months or Most Recently Relevant to Health Maintenance Insurance [facility] [employer] ACO Advance Directives For more information, please contact: [phone] * Full Code (Latest Code Status on File) Date Activated Date Inactivated Comments 06/29/2019 3:16 AM 07/09/2019 5:56 PM Care Teams Associate Field Service Engineer Relationship Specialty Start Date End Date Nikita Yao NP PCP - General Family Medicine 05/20/21
[2025-06-27 23:12] VITALS: BMI 32.5
[2025-06-27 23:30] VITALS: BP 145/86; PULSE 72; RESP 16; TEMP 36.5; O2SAT 100
--- NOTE | 2025-06-28 | ECG_ITS ---
Test Reason : 38417 Blood Pressure : */* mmHG Vent. Rate : 53 BPM Atrial Rate : 53 BPM P-R Int : 130 ms QRS Dur : 142 ms QT Int : 464 ms P-R-T Axes : 55 -12 19 degrees QTcB Int : 435 ms Sinus bradycardia Right bundle branch block Abnormal ECG No previous ECGs available Referred By: Stefanie Baer Electronically Signed By: JEFFREY MELENDREZ
--- NOTE | 2025-06-28 00:56 | PC.ADMIT ---
Pt is a 54yo male, admitted on a CV from [facility]] for SI. Pt has HX of depression, anxiety, and opiate use. Per crisis assessment, Pt presented to [facility] ED, with worsening depression for months. Pt stated that if he didn't come to the ED today, he was going to kill himself with a noose he made at his apartment. Pt reports ongoing Fentanyl use and that he is receiving Methadone treatment. Pt disclosed that he was given an eviction notice at his apartment. Per unit admission assessment, Pt is A&OX4, calm and cooperative with admission procedure. Pt denies SI /HI/AV/VHSkin/safety check unremarkable, v/s, weight and height documented. Pt only signed release for Insurance and pharmacy, he has PCP, Psychiatrist or Therapist. He filled/signed Menu, and statement of understanding. he declined to fill my contact list, states he only needs to call his Mom. Treatment plans and safety tools initiated but yet to be signed. Hospitalist contacted for consultation.
[2025-06-28] MEDS: Magnesium Hydrox/Alum Hydrox 30 ML ORAL.SUSP PO (04:55)
--- NOTE | 2025-06-28 06:22 | HE.PHANOTE ---
RE: METHADONE DOSING Last dose of methadone 105 mg was taken on 06/27/25 @0612 at [facility] [phone] per Sheree.
[2025-06-28 07:15] VITALS: BP 141/73; PULSE 57; RESP 16; TEMP 36.1; O2SAT 96
[2025-06-28] MEDS: methADONE HCl 20 MG/2 ML ORAL.CONC 105 MG PO (07:51)
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
[2025-06-28] MEDS: Nicotine 21 MG PATCH.TD24 TRANSDERMA (10:38)
[2025-06-28 20:00] VITALS: BP 151/85; PULSE 60; RESP 16; TEMP 36.2; O2SAT 98
--- NOTE | 2025-06-28 21:33 | P.CONHOSP_ITS ---
History of Present Illness Data of Consult Service Date: 06/28/25 Requesting physician: Henrry Segovia Primary Care Provider: None Physician HPI Reason for consult: Admission H/P Patient is a 54-year-old male with past medical history hypertension, dyslexia, ADHD, GERD, substance use disorder on methadone, overdose resulting in cardiac arrest/ Narcan use, tobacco use disorder, hepatitis-C in remission on Harvoni treatment, history of IV drug abuse but patient has stopped once he learned he had hepatitis-C, fentanyl use last use 24 hours prior, obesity is being seen for his admission H and P status post being admitted through Psychiatry for suicidal ideations. Patient began as [facility] and is from the [facility]. [facility]. Patient denies any current medical problems. EKG notes a right bundle-branch block, sinus rhythm with no ischemic changes. Patient does deny chest pain at this time but intermittently may feel chest sensation especially in the left side of his chest. Patient has never seen a heat treat operator and has never had a stress test. Patient states he recovered from his ?cardiac arrest after receiving Narcan which is a scenario that does not correlate medically speaking. Patient states he does not believe he received CPR. Review of Systems Review of Systems: Patient currently denies any chest pain, shortness of breath at rest or with exertion, abdominal pain, nausea/vomiting, diarrhea but is having constipation and was started on MiraLax earlier in the day. Patient denies any headache, visual changes and states his septum is intact although he is having some allergic rhinitis, nasal cannula. Patient states last use of fentanyl was yesterday. Patient's smokes regularly in his currently on a nicotine patch. Yes all other systems are reviewed and are negative [facility] Medical History (Updated 06/28/25 @ 21:46 by ALYSON [address]) Overdose IV drug abuse Hepatitis C GERD (gastroesophageal reflux disease) Tobacco dependence Substance use disorder Obesity ADHD Dyslexia Hypertension Cognitive capacity: Alert and orientated x3 Functional capacity: independent ambulation Pertinent family history: Mother age 78 [facility] Patient does not know anything about his father Social History Household Members: None Housing: Apartment Do you presently have visiting nurse or other home services: No Patient Tobacco Use Status: Current everyday Tobacco user Tobacco use type: Cigarette Smoked in Last 30 Days: Yes e-Cigarette/Vaping Use: Never Used Patient Interested in Nicotine Replacement: Yes Patient Given Instructions on How to Stop Smoking: No Second Hand Smoke Exposure: No Currently Displaying Signs/Symptoms of Drug Intoxication Withdrawal: No Have you been hit, kicked, punched, or otherwise hurt by someone within the past year? If so, by whom?: No Do you feel safe in your current relationship?: No Current Relationship Is there a partner from a previous relationship who is making you feel unsafe now?: No Are you made to feel afraid or neglected: No Advance Directives: No Advance Directives Information Provided: No Do you have thoughts of harming others: None Do you have a plan to hurt others: No Plan Recently lost weight without trying: No Eating poorly because of decreased appetite: Yes Nutrition Risks: No Nutritional Risk Poor oral hygiene: No Ebola Risk: Travel/Contact With Anyone From Affected Area/s: No Has Patient Experienced Ebola Symptoms: No Meds Allergies Allergy/AdvReac Type Severity Reaction Status Date / Time No Known Allergies Allergy Verified 06/27/25 23:49 Active Medications: Current Medications Acetaminophen (Acetaminophen 325 Mg Tablet) 650 mg PO Q6H PRN PRN Reason: Headache/Pain, Scale 1-10 Last Admin: 06/28/25 15:16 Dose: 650 mg Al Hydroxide/Mg Hydroxide (Magnesium Hydrox/Alum Hydrox 30 Ml Oral.Susp) 30 ml PO Q6H PRN PRN Reason: Heartburn/Nausea Last Admin: 06/28/25 04:55 Dose: 30 ml Docusate Sodium (Docusate Sodium 100 Mg Capsule) 100 mg PO BID [facility] Last Admin: 06/28/25 20:05 Dose: 100 mg Hydroxyzine HCl (Hydroxyzine Hcl 25 Mg Tablet) 25 mg PO Q6H PRN PRN Reason: mild anxiety Last Admin: 06/28/25 20:05 Dose: 25 mg Magnesium Hydroxide (Milk Of Magnesia 30 Ml Oral.Susp) 30 ml PO DAILY PRN PRN Reason: Constipation Methadone HCl (Methadone Hcl 20 Mg/2 Ml Oral.Conc) 105 mg PO DAILY@0800 [facility] Nicotine (Nicotine 21 Mg Patch.Td24) 21 mg TRANSDERMA DAILY [facility] Nicotine Polacrilex (Nicotine Polacrilex 2 Mg Gum) 4 mg BUCCAL Q2H PRN PRN Reason: Nicotine Cravings Pregabalin (Pregabalin 150 Mg Capsule) 150 mg PO TID [facility] Last Admin: 06/28/25 20:04 Dose: 150 mg Risperidone (Risperidone 0.5 Mg Tablet) 0.5 mg PO BEDTIME [facility] Last Admin: 06/28/25 20:04 Dose: 0.5 mg Risperidone (Risperidone 0.25 Mg Tablet) 0.25 mg PO BID PRN PRN Reason: anxiety Last Admin: 06/28/25 20:05 Dose: 0.25 mg Risperidone (Risperidone 1 Mg Tablet) 1 mg PO BID PRN PRN Reason: agitation Sucralfate (Sucralfate 1 Gm Tablet) 1 gm PO QID [facility] Last Admin: 06/28/25 20:04 Dose: 1 gm Home Medications ?Medication ?Instructions ?Recorded ?Confirmed ?Last Taken ?Type pregabalin 150 mg capsule 150 mg PO TID 06/27/2506/27 Unknown History sucralfate 1 gram tablet 1 g PO QID 06/27/25 06/27/25 Unknown History methadone 10 mg/mL oral 105 mg PO DAILY 06/28/2509/2106/27/25 06:12 History concentrate (Methadone Intensol) Physical Exam Vital Signs and Narrative: Vital Signs: Last Vital Signs Temp 96.9 F 06/28/25 07:15 Pulse 57 06/28/25 07:15 Resp 16 06/28/25 07:15 BP 141/73 H 06/28/25 07:15 Pulse Ox 96 06/28/25 07:15 O2 Del Method Room Air 06/28/25 07:15 BMI result Body Mass Index 32.5 Alert and orientated X3, able to give good history. Neuro: CN II-X11 intact, no deficits, visual acuity intact EYES: PERRLA, EOM intact, sclerae nonicteric, conjunctiva pink ENT: hearing intact, no issues with swallowing, uvula midline, lips moist, nares patent no epistaxis Cardiac: S1 S2 RRR, no murmur, no JVD, no edema in Lower ext Pulmonary: lungs clear to auscultation B Abdominal: BS active in all 4 quadrants, no guarding, tenderness, rebounding MSK: strength 5/5 upper and lower extremities : no CVA tenderness no bladder distension Extremities: no edema in lower extremities, PT and DP pulses palpable +2 Psych: mood stable, judgement and insight good Skin: No new rashes or lesions Results ECG Attestation: I personally reviewed and interpreted this ECG as follows: (Sinus rhythm, RBBB QTC 450) Prior ECG tracings: available for review Assessment and Plan (1) Hypertension: Qualifiers: Hypertension type: primary hypertension Qualified Code(s): I10 - Essential (primary) hypertension Status: Acute (2) GERD (gastroesophageal reflux disease): Qualifiers: Esophagitis presence: without esophagitis Qualified Code(s): K21.9 - Gastro-esophageal reflux disease without esophagitis Status: Acute Plan Patient is a 54-year-old male with past medical history hypertension, dyslexia, ADHD, GERD, substance use disorder on methadone, overdose resulting in cardiac arrest/ Narcan use, tobacco use disorder, hepatitis-C in remission on Harvoni treatment, history of IV drug abuse but patient has stopped once he learned he had hepatitis-C, fentanyl use last use 24 hours prior, obesity is being seen for his admission H and P status post being admitted through Psychiatry for suicidal ideations. Patient offers no specific medical concerns at this time. Patient does report history of intermittent chest sensation nonspecific. Patient agreed to labs this morning but laboratory was unable to collect labs x2. Patient has been hydrated and they will re-attempt in the morning. Hypertension No labs available, will start amlodipine 5 mg daily Cardiac low-sodium diet EKG with RBBB Likely not a new finding but no comparison EKG available Currently patient is chest pain-free Cardiology consulted BNP, lipid panel pending Patient advised to also seek cardiology referral with his PCP in fall noting history of overdose and report of cardiac arrest requiring Narcan Patient also educated to notify nursing if he has any chest pain or unusual upper chest symptoms Patient advised to stop using illicit drugs including fentanyl due to the risk of overdose and cardiac event GERD Continue sucralfate Omeprazole added Avoid food triggers Constipation Patient is started on MiraLax Senna on board Milk of magnesia PRN Obesity Nutritional consultation requested Patient counseled on the benefits of weight loss A1c pending Substance use disorder on methadone Continue methadone QTC stable at 450 Tobacco dependence Patient currently on nicotine patch Nicotine gum p.r.n. Patient counseled on the benefits of smoking cessation History of hepatitis-C in remission Patient states hepatitis-C stemmed from previous history of IV drug use Patient completed treatment and is no longer testing positive Patient has stopped using IV drugs once treatment started, no indication to repeat hepatitis testing at this time Hospitalist group will continue to monitor to review labs and for collaboration regarding cardiology consultation and possible needs. This assembly instructions writer updated nicolle armstrong on plan of care.
[2025-06-29 03:00] VITALS: BP 160/83; PULSE 87; O2SAT 99
--- NOTE | 2025-06-29 03:17 | PC.NURSE ---
c/o opioid w/d-up, irritable. displays difficulty sitting still, reports muscle/joint pain, GI distress. nursing initiated COWS assessment 15. Dr. Swift notified. 160/83, 87
[2025-06-29] MEDS: methADONE HCl 20 MG/2 ML ORAL.CONC 105 MG PO (07:00)
[2025-06-29 07:49] VITALS: BP 150/83; PULSE 65; RESP 18; TEMP 36.2; O2SAT 99
[2025-06-29] MEDS: Nicotine 21 MG PATCH.TD24 TRANSDERMA (07:56)
--- NOTE | 2025-06-29 09:13 | P.PNPSI_ITS ---
Subjective Subjective Date of Service: 06/29/25 Reason For Visit: decompensation Interim History: Chart reviewed, case discussed w/ nursing staff Scored 15 on COWS over night. Took Bentyl and clonidine that t/w ordered ~3 am after receiving request from his nurse requested all the prns available so he could sleep. He was reportedly somewhat demanding for his methadone today at 7 am. Was fine after receiving it ~8 am denied w/d sx this am Pt greeted t/w in the hallway and apologized for t/w being called in the middle of the night and expressed appreciation for the medication, which helped. He denies current sx of w/d. He asked for Seroquel at night to help him sleep and was agreeable w/ plan to switch from risperidone to Seroquel. MSE: Appearance: Grooming/hygiene fair. good eye contact Attitude:Cooperative Speech: Fluent and wnl in regard to volume, tone, prosody Motor activity: Calm and without any tics, tremors or dyskinesias. Steady gait Mood: better Affect: appropriate, reactive, fairly bright Thought process: goal directed and without evidence of formal thought disorder Thought content: No SI/violent ideation reported Perception: No AHVH reported. does not appear to respond to internal stimuli Cognition grossly intact Insight: intact Judgment: intact Medication Compliance: Yes Diagnostics Vital Signs (24Hr): Vital Signs - 24 hr 06/28/25 20:00 06/29/25 03:00 06/29/25 07:49 Temperature 97.1 F 97.1 F Pulse Rate 60 87 65 Respiratory Rate 16 18 Blood Pressure 151/85 H 160/83 H 150/83 H Pulse Oximetry 98 99 99 Oxygen Delivery Method Room Air Room Air Room Air BMI result Body Mass Index 32.5 EKG EKG: reviewed EKG Comment: 06/29/25 Reason for Exam: QTc monitoring Test Reason : 72913 Blood Pressure : */* mmHG Vent. Rate : 53 BPM Atrial Rate : 53 BPM P-R Int : 130 ms QRS Dur : 142 ms QT Int : 464 ms P-R-T Axes : 55 -12 19 degrees QTcB Int : 435 ms Sinus bradycardia Right bundle branch block Abnormal ECG No previous ECGs available Medications Medications Current Medications Acetaminophen (Acetaminophen 325 Mg Tablet) 650 mg PO Q6H PRN PRN Reason: Headache/Pain, Scale 1-10 Last Admin: 06/29/25 03:04 Dose: 650 mg Al Hydroxide/Mg Hydroxide (Magnesium Hydrox/Alum Hydrox 30 Ml Oral.Susp) 30 ml PO Q6H PRN PRN Reason: Heartburn/Nausea Last Admin: 06/28/25 04:55 Dose: 30 ml Amlodipine Besylate (Amlodipine Besylate 5 Mg Tablet) 5 mg PO DAILY [facility]; Protocol Last Admin: 06/29/25 07:57 Dose: 5 mg Clonidine HCl (Clonidine Hcl 0.1 Mg Tablet) 0.1 mg PO TID PRN; Protocol PRN Reason: opioid withdrawal Last Admin: 06/29/25 03:29 Dose: 0.1 mg Dicyclomine HCl (Dicyclomine Hcl 10 Mg Capsule) 10 mg PO QIDACHS PRN PRN Reason: stomach cramps Last Admin: 06/29/25 03:29 Dose: 10 mg Docusate Sodium (Docusate Sodium 100 Mg Capsule) 100 mg PO BID [facility] Last Admin: 06/29/25 07:57 Dose: 100 mg Hydroxyzine HCl (Hydroxyzine Hcl 25 Mg Tablet) 25 mg PO Q6H PRN PRN Reason: mild anxiety Last Admin: 06/29/25 03:05 Dose: 25 mg Magnesium Hydroxide (Milk Of Magnesia 30 Ml Oral.Susp) 30 ml PO DAILY PRN PRN Reason: Constipation Methadone HCl (Methadone Hcl 20 Mg/2 Ml Oral.Conc) 105 mg PO DAILY@0800 [facility] Last Admin: 06/29/25 07:00 Dose: 105 mg Nicotine (Nicotine 21 Mg Patch.Td24) 21 mg TRANSDERMA DAILY [facility] Last Admin: 06/29/25 07:56 Dose: 21 mg Nicotine Polacrilex (Nicotine Polacrilex 2 Mg Gum) 4 mg BUCCAL Q2H PRN PRN Reason: Nicotine Cravings Omeprazole (Omeprazole 20 Mg Capsule.Dr) 20 mg PO DAILY@0630 [facility] Last Admin: 06/29/25 05:57 Dose: 20 mg Polyethylene Glycol (Polyethylene Glycol 3350 17 Gm Powd.Pack) 17 gm PO DAILY [facility] Last Admin: 06/29/25 07:58 Dose: 17 gm Pregabalin (Pregabalin 150 Mg Capsule) 150 mg PO TID [facility] Last Admin: 06/29/25 07:57 Dose: 150 mg Risperidone (Risperidone 0.5 Mg Tablet) 0.5 mg PO BEDTIME [facility] Last Admin: 06/28/25 20:04 Dose: 0.5 mg Risperidone (Risperidone 0.25 Mg Tablet) 0.25 mg PO BID PRN PRN Reason: anxiety Last Admin: 06/29/25 03:05 Dose: 0.25 mg Risperidone (Risperidone 1 Mg Tablet) 1 mg PO BID PRN PRN Reason: agitation Senna (Sennosides 8.6 Mg Tablet) 17.2 mg PO BEDTIME [facility] Sucralfate (Sucralfate 1 Gm Tablet) 1 gm PO QID [facility] Last Admin: 06/29/25 07:58 Dose: 1 gm Allergies Allergies Allergy/AdvReac Type Severity Reaction Status Date / Time No Known Allergies Allergy Verified 06/27/25 23:49 Assessment & Plan Assessment & Plan (1) Hypertension: Qualifiers: Hypertension type: primary hypertension Qualified Code(s): I10 - Essential (primary) hypertension Status: Acute Code(s): I10 - Essential (primary) hypertension (2) GERD (gastroesophageal reflux disease): Qualifiers: Esophagitis presence: without esophagitis Qualified Code(s): K21.9 - Gastro-esophageal reflux disease without esophagitis Status: Acute Code(s): K21.9 - Gastro-esophageal reflux disease without esophagitis Plan Mr. Pressley is a 54 yo M with h/o depression, PTSD, ADHD, dyslexia, previous bipolar dx, opioid use d/o on maintenance tx and HCV in remission s/p Gary who presented to [facility] ED due to SI. He was transferred to [facility] for tx of depression/SI after undergoing medical clearance. Plan: Admitted to for safety and stabilization Signed CV 15 min safety checks VS per unit standard. Reviewed labs from [facility]- CMP wnl aside from elevated blood glucose, CBC essentially wnl 06/28- -Pt is agreeable w/ starting risperidone off-label for severe anxiety/PTSD sx, starting with 0.5 mg qhs standing dose + .25 mg bid prn for anxiety -risperidone 1 mg bid prn ordered for agitation -D/C'd prn trazodone order since pt doesn't want to take it (caused nightmares in the past). -Continue pregabalin 150 mg tid for chronic pain -Continue methadone 105 mg qam -NRT ordered 06/29- PRN clonidine, ibuprofen and bentyl ordered for opioid w/d sx d/c'd standing/prn risperidone. Switched to seroquel 50 mg qhs + 50 mg tid prn for anxiety and/or agitation. Reviewed EKG- QTc 435 ms today Admission medical consult done by hospitalist. Input appreciated HTN- started on amlodipine 5 mg qd EKG with RBBB- per hospitalist- likely not new but no comparison EKg available. Cardiology consulted. Patient advised to also seek cardiology referral with his PCP in [place] noting history of overdose and report of cardiac arrest requiring Narcan Patient also educated to notify nursing if he has any chest pain or unusual upper chest symptoms Patient advised to stop using illicit drugs including fentanyl due to the risk of overdose and cardiac event GERD Continue sucralfate Omeprazole added Avoid food triggers Constipation Patient is started on MiraLax Senna on board Milk of magnesia PRN Obesity Nutritional consultation requested Patient counseled on the benefits of weight loss A1c pending Substance use disorder on methadone Continue methadone QTC stable at 450 Tobacco dependence Patient currently on nicotine patch Nicotine gum p.r.n. Patient counseled on the benefits of smoking cessation History of hepatitis-C in remission Patient states hepatitis-C stemmed from previous history of IV drug use Patient completed treatment and is no longer testing positive Patient has stopped using IV drugs once treatment started, no indication to repeat hepatitis testing at this time Hospitalist group will continue to monitor to review labs and for collaboration regarding cardiology consultation and possible needs. Reason for continued inpatient stay Substantial Risk for: med/psych decompensation Time Spent With Patient Time: Total time managing care of this patient today ____ minutes.
[2025-06-29 10:02] VITALS: BP 119/75; PULSE 59
[2025-06-29 20:00] VITALS: BP 138/81; PULSE 74; RESP 18; TEMP 36.6; O2SAT 96
[2025-06-29 20:14] VITALS: BP 138/81
[2025-06-30 02:48] VITALS: BP 132/85
[2025-06-30] MEDS: methADONE HCl 20 MG/2 ML ORAL.CONC 105 MG PO (07:03)
[2025-06-30 07:53] VITALS: BP 139/79; PULSE 63; RESP 16; TEMP 36.2; O2SAT 99
[2025-06-30] MEDS: Nicotine 21 MG PATCH.TD24 TRANSDERMA (08:17)
--- NOTE | 2025-06-30 10:41 | P.PNPSI_ITS ---
Subjective Subjective Date of Service: 06/30/25 Reason For Visit: decompensation Subjective Notes: Conditional Voluntary Interim History: Active on unit. Patient reports having lots of anxiety d/t being around people ; denies SI/HI/VH/AH. Focused on going to a substance abuse program; pt stated, I don't care where I get into. I just don't want to go back to [place] ; social media strategist aware.Patient reports he was taking medications years ago for depression/anxiety; however, was unable to recall names. Discussed starting on Abilify; risks/benefits reviewed, pt agreed to trial. Start: Abilify 5mg PO bedtime. Medication Compliance: Yes Side effects from medications: No Mental Status Exam Mental Status Exam Narrative: Pt is alert and oriented; behavior is cooperative and calm; dressed in casual attire; mood is described as anxious and depressed ; eye contact appropriate; Speech is normal rate, volume and not pressured; thought process is organized and goal directed; Thought content is on tx; denies SI/HI/VH/AH. Diagnostics Vital Signs (24Hr): Vital Signs - 24 hr 06/29/25 20:00 06/29/25 20:14 06/30/25 02:48 Temperature 97.8 F Pulse Rate 74 Respiratory Rate 18 Blood Pressure 138/81 138/81 132/85 Pulse Oximetry 96 Oxygen Delivery Method Room Air 06/30/25 07:53 Temperature 97.2 F Pulse Rate 63 Respiratory Rate 16 Blood Pressure 139/79 Pulse Oximetry 99 Oxygen Delivery Method Room Air BMI result Body Mass Index 32.5 Labs 06/30/25 11:29 Medications Medications Current Medications Acetaminophen (Acetaminophen 325 Mg Tablet) 650 mg PO Q6H PRN PRN Reason: Headache/Pain, Scale 1-10 Last Admin: 06/29/25 10:04 Dose: 650 mg Al Hydroxide/Mg Hydroxide (Magnesium Hydrox/Alum Hydrox 30 Ml Oral.Susp) 30 ml PO Q6H PRN PRN Reason: Heartburn/Nausea Last Admin: 06/28/25 04:55 Dose: 30 ml Amlodipine Besylate (Amlodipine Besylate 5 Mg Tablet) 5 mg PO DAILY [facility]; Protocol Last Admin: 06/30/25 08:16 Dose: 5 mg Clonidine HCl (Clonidine Hcl 0.1 Mg Tablet) 0.1 mg PO RQ6H PRN; Protocol PRN Reason: opioid withdrawal Last Admin: 06/30/25 02:48 Dose: 0.1 mg Dicyclomine HCl (Dicyclomine Hcl 10 Mg Capsule) 10 mg PO QIDACHS PRN PRN Reason: stomach cramps Last Admin: 06/29/25 10:03 Dose: 10 mg Docusate Sodium (Docusate Sodium 100 Mg Capsule) 100 mg PO BID [facility] Last Admin: 06/30/25 08:16 Dose: 100 mg Hydroxyzine HCl (Hydroxyzine Hcl 25 Mg Tablet) 25 mg PO Q6H PRN PRN Reason: mild anxiety Last Admin: 06/30/25 05:52 Dose: 25 mg Ibuprofen (Ibuprofen 800 Mg Tablet) 800 mg PO RQ8H PRN PRN Reason: muscle pain Last Admin: 06/30/25 02:49 Dose: 800 mg Magnesium Hydroxide (Milk Of Magnesia 30 Ml Oral.Susp) 30 ml PO DAILY PRN PRN Reason: Constipation Methadone HCl (Methadone Hcl 20 Mg/2 Ml Oral.Conc) 105 mg PO DAILY@0800 [facility] Last Admin: 06/30/25 07:03 Dose: 105 mg Nicotine (Nicotine 21 Mg Patch.Td24) 21 mg TRANSDERMA DAILY [facility] Last Admin: 06/30/25 08:17 Dose: 21 mg Nicotine Polacrilex (Nicotine Polacrilex 2 Mg Gum) 4 mg BUCCAL Q2H PRN PRN Reason: Nicotine Cravings Omeprazole (Omeprazole 20 Mg Capsule.Dr) 20 mg PO DAILY@0630 [facility] Last Admin: 06/30/25 05:52 Dose: 20 mg Polyethylene Glycol (Polyethylene Glycol 3350 17 Gm Powd.Pack) 17 gm PO DAILY [facility] Last Admin: 06/30/25 08:56 Dose: Not Given Pregabalin (Pregabalin 150 Mg Capsule) 150 mg PO TID [facility] Last Admin: 06/30/25 08:16 Dose: 150 mg Quetiapine Fumarate (Quetiapine Fumarate 50 Mg Tablet) 50 mg PO BEDTIME [facility] Last Admin: 06/29/25 20:13 Dose: 50 mg Quetiapine Fumarate (Quetiapine Fumarate 50 Mg Tablet) 50 mg PO TID PRN PRN Reason: anxiety and/or insomnia Last Admin: 06/30/25 02:48 Dose: 50 mg Senna (Sennosides 8.6 Mg Tablet) 17.2 mg PO BEDTIME [facility] Last Admin: 06/29/25 20:13 Dose: 17.2 mg Sucralfate (Sucralfate 1 Gm Tablet) 1 gm PO QID [facility] Last Admin: 06/30/25 08:16 Dose: 1 gm Allergies Allergies Allergy/AdvReac Type Severity Reaction Status Date / Time No Known Allergies Allergy Verified 06/27/25 23:49 Assessment & Plan Assessment & Plan (1) Depressive disorder: Status: Acute Code(s): F32.A - Depression, unspecified (2) Posttraumatic stress disorder: Status: Acute Code(s): F43.10 - Post-traumatic stress disorder, unspecified (3) Opioid use disorder, severe, on maintenance therapy: Status: Acute Code(s): F11.20 - Opioid dependence, uncomplicated Plan Mr. Pressley is a 54 yo M with h/o depression, PTSD, ADHD, dyslexia, previous bipolar dx, opioid use d/o on maintenance tx and HCV in remission s/p Gary who presented to [facility] ED due to SI. He was transferred to [facility] for tx of depression/SI after undergoing medical clearance. Plan: Admitted to for safety and stabilization Signed CV 15 min safety checks VS per unit standard. Reviewed labs from [facility]- CMP wnl aside from elevated blood glucose, CBC essentially wnl 06/28- -Pt is agreeable w/ starting risperidone off-label for severe anxiety/PTSD sx, starting with 0.5 mg qhs standing dose + .25 mg bid prn for anxiety -risperidone 1 mg bid prn ordered for agitation -D/C'd prn trazodone order since pt doesn't want to take it (caused nightmares in the past). -Continue pregabalin 150 mg tid for chronic pain -Continue methadone 105 mg qam -NRT ordered 06/29- PRN clonidine, ibuprofen and bentyl ordered for opioid w/d sx d/c'd standing/prn risperidone. Switched to seroquel 50 mg qhs + 50 mg tid prn for anxiety and/or agitation. Reviewed EKG- QTc 435 ms today Admission medical consult done by hospitalist. Input appreciated HTN- started on amlodipine 5 mg qd EKG with RBBB- per hospitalist- likely not new but no comparison EKg available. Cardiology consulted. Patient advised to also seek cardiology referral with his PCP in [place] noting history of overdose and report of cardiac arrest requiring Narcan Patient also educated to notify nursing if he has any chest pain or unusual upper chest symptoms Patient advised to stop using illicit drugs including fentanyl due to the risk of overdose and cardiac event GERD Continue sucralfate Omeprazole added Avoid food triggers Constipation Patient is started on MiraLax Senna on board Milk of jake PRN Obesity Nutritional consultation requested Patient counseled on the benefits of weight loss A1c pending Substance use disorder on methadone Continue methadone QTC stable at 450 Tobacco dependence Patient currently on nicotine patch Nicotine gum p.r.n. Patient counseled on the benefits of smoking cessation History of hepatitis-C in remission Patient states hepatitis-C stemmed from previous history of IV drug use Patient completed treatment and is no longer testing positive Patient has stopped using IV drugs once treatment started, no indication to repeat hepatitis testing at this time Hospitalist group will continue to monitor to review labs and for collaboration regarding cardiology consultation and possible needs. 06/30: Active on unit. Patient reports having lots of anxiety d/t being around people ; denies SI/HI/VH/AH. Focused on going to a substance abuse program; pt stated, I don't care where I get into. I just don't want to go back to [place] ; social media strategist aware.Patient reports he was taking medications years ago for depression/anxiety; however, was unable to recall names. Discussed starting on Abilify; risks/benefits reviewed, pt agreed to trial. Start: Abilify 5mg PO bedtime. Patient educated on: diagnosis and medication risk/benefits Reason for continued inpatient stay Substantial Risk for: med/psych decompensation Time Spent With Patient Time: Total time managing care of this patient today _20___ minutes.
[2025-06-30 11:02] VITALS: BP 116/76
[2025-06-30 12:02] LABS: NT Pro B Type Natriuretic Pept 203.6 pg/mL (<300)
[2025-06-30 12:06] LABS: Alanine Aminotransferase 24 U/L (0-40); Albumin Level 4.5 g/dL (3.5-5.0); Alkaline Phosphatase 79 U/L (39-117); Anion Gap 12 (12-20); Aspartate Amino Transferase 28 U/L (5-37); Blood Urea Nitrogen 17 mg/dL (9-16); Calcium 9.8 mg/dL (8.4-10.2); Carbon Dioxide 27 mmol/L (22-29); Chloride 104 mmol/L (96-108); Cholesterol 182 mg/dL (<200); Creatinine Clr Calc Pharmacy 121.4; Estimated Glomerular Filt Rate > 60; HDL Cholesterol 41 mg/dL (>40); Magnesium 2.0 mg/dL (1.6-2.6); Potassium 4.2 mmol/L (3.3-5.1); Sodium 139 mmol/L (135-145); Total Protein 7.5 g/dL (6.5-8.0); Triglycerides 159 mg/dL (<150)
--- NOTE | 2025-06-30 15:31 | MHC.CLN ---
CONSULT CONSULT REQUESTED BY PROVIDER FOR OBESITY AND NUTRITION EDUCATION. PATIENT ADMITTED FOR DECOMPENSATION. BMI=32.5, OBESE. NUTRITION EDUCATION DEFERRED AT THIS TIME DUE TO DECOMPENSATION.
--- NOTE | 2025-06-30 17:20 | PC.NURSE ---
Cardiology was called in the afternoon r/t an order of an Echo to be completed on the pt. Was told that they would give us a call back when available to do his Echo. Attempted to call again this evening at 16:50 with no answer.
[2025-06-30 20:00] VITALS: BP 114/56; PULSE 60; RESP 16; TEMP 36.4; O2SAT 97
[2025-07-01 03:01] VITALS: BP 136/83; PULSE 81; RESP 14; O2SAT 99
--- NOTE | 2025-07-01 07:00 | CA_ITS ---
Transthoracic Echocardiogram Amended Patient (Last, First, Middle): Lawrence Pressley, Gender: Male Date of : 1970 Age: 54 Procedure Date: 07/01/2025 Procedure Type: Transthoracic Echocardiogram Location: S3 Psych Height: 180.34 cm Weight: 104.33 kg BSA: 2.24 m2 Heart Rate: bpm BP: 133 / [address] Driver: AMELIA Referring MD: Fadumo LINN Personal Development Coach: Louis Hernandez MD Symptoms: RBBB, LVEF Study Quality: Adequate ECG Rhythm: Sinus Conclusions: - Technically limited study but otherwise normal study Findings Left Ventricle Normal left ventricular size, thickness, and systolic function. The visually estimated ejection fraction is between 60-65%. Spectral Doppler is indicative of a normal filling pattern. Right Ventricle Normal right ventricular cavity size and systolic function. Atria The left atrium is normal in size. Interatrial shunt cannot be excluded. The right atrium was not well visualized. Aortic Valve The aortic valve structure and function is likely normal. There is no aortic valve stenosis. There is no aortic valve regurgitation. Mitral Valve Likely normal mitral valve structure and function. There is no mitral valve regurgitation. There is no mitral valve stenosis. Pulmonic Valve The pulmonic valve was not well visualized. Tricuspid Valve The tricuspid valve was not well visualized. There is trace tricuspid valve regurgitation. The right ventricular systolic pressure is normal. The right ventricular systolic pressure is 19 mmHg. Normal right atrial pressure. There is no evidence of pulmonary hypertension. Great Vessels All visible segments of the aorta are normal in size. The pulmonary artery was not well visualized. Venous The inferior vena cava is normal in size and collapses greater than 50% with inspiration. Pericardium/Pleural The pericardium was not well visualized. Prior Study Comparison No prior study available for comparison. Measurements 2D Linear Measurements IVSd: 1.01 0.6-0.9/0.6-1.0 cm LVIDd: 5.14 3.9-5.3/4.2-5.9 cm LVIDd Index: 2.29 2.4-3.2/2.2-3.1 cm/m2 LVIDs: 3.15 2.0-3.6 cm LVPWd: 1.09 0.7-1.1 cm Ao Root: 3.40 2.1-3.5 cm LA Diam: 4.10 2.7-3.8/3.0-4.0 cm LAIDs Index: 1.83 1.5-2.3 cm/m2 LV Mass: 253.45 67-162/88-224 g LV Mass Index: 113.15 43-95/49-115 g/m2 LVOT Diam: 2.20 3.0+(-)1.3 cm 2D Volumes LA Vol: 22.00 2D Systolic Function EF 4C: 61.60 >55% EF 2C: 64.40 >55% EF BiP: 62.00 >55% Mitral Valve MV Pk E: 0.42 MV PK A: 0.57 MV Decel Time: 298.00 E/A: 0.70 E'Lateral: 8.70 E'Medial: 5.77 E/E' Med: 7.20 E/E' Lat: 4.80 PHT: 87.00 MVA PHT: 2.53 Decel Richardson: 1.39 Aortic Valve AoV Pk Hardeep: 1.41 AoV Mn Hardeep: 0.98 AoV VTI: 0.31 AoV Pk Grad: 8.00 Aov Mn Grad: 5.00 ZHENG Cont.VTI: 2.97 LVOT LVOT Pk Hardeep: 1.22 LVOT Mn Hardeep: 0.76 LVOT VTI: 0.25 LVOT Pk Grad: 6.00 LVOT Mn Grad: 3.00 LVOT Diam: 2.20 LVOT Area: 3.80 Diastolic Function MV Pk E: 0.42 MV Pk A: 0.57 E/A: 0.70 E'Medial: 5.77 E/E' Med: 7.20 E' Laterial: 8.70 E/E' Lat: 4.80 Right Ventricle TAPSE (mm): 25.00 TVS' Hardeep: 11.00 Tricuspid Valve TR Pk Hardeep: 1.99 TR Pk Grad: 16.00 RA Press: 3.00 RVSP: 19.00 Great Vessels Aorta Ao Root-2D: 3.40 2.0-3.7 cm Ao Asc: 2.90 2.1-3.4 cm Pulmonary Valve PV Pk Hardeep: 0.88 Peak PV Grad: 3.00 Updated in Other Vendor System with Status of Final Louis Hernandez MD electronically signed on 07/04/2025 2:50:42 PM with status of Final
[2025-07-01] MEDS: methADONE HCl 20 MG/2 ML ORAL.CONC 105 MG PO (07:47)
[2025-07-01 08:28] VITALS: BP 148/85
[2025-07-01 08:30] VITALS: BP 148/85; PULSE 62; RESP 16; TEMP 36.4; O2SAT 98
[2025-07-01] MEDS: Nicotine 21 MG PATCH.TD24 TRANSDERMA (08:30)
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
[2025-07-01 14:01] VITALS: BP 133/75
[2025-07-01 20:00] VITALS: BP 100/60; PULSE 60; RESP 16; TEMP 36.4; O2SAT 96
[2025-07-02 02:47] VITALS: BP 115/77
[2025-07-02] MEDS: methADONE HCl 20 MG/2 ML ORAL.CONC 105 MG PO (07:00)
[2025-07-02 08:00] VITALS: BP 128/82; PULSE 72; RESP 18; TEMP 36.3; O2SAT 97
[2025-07-02] MEDS: Nicotine 21 MG PATCH.TD24 TRANSDERMA (08:45)
--- NOTE | 2025-07-02 10:52 | PM.EVENT ---
Event Note Date of Service: 07/02/25 Event Note: Noted on admission EKG with RBBB. Present on previous EKG's He has remained CP free, BNP WNL. Cholesterol slightly elevated. Patient will need outpatient follow up with PCP for lipid management and a referral to cardiology as an outpatient for further work up if indicated. Patient advised to stop using illicit drugs including fentanyl due to the risk of overdose and cardiac event by medical team. Patient is cleared for [facility] program. Time Spent With Patient Time: Total time managing care of this patient today ____ minutes.
[2025-07-02 11:19] VITALS: BP 96/65
--- NOTE | 2025-07-02 12:56 | HO.PSYCHPN ---
Subjective Subjective Date of Service: 07/02/25 Reason For Visit: decompensation Subjective Notes: Conditional Voluntary Interim History: Active on unit. keeping to self. Patient continues to report feeling fine but still anxious ; focused on going to substance abuse program. denies SI/HI/VH/AH. Patient denies any side effects from Abilify. per nursing, slept 7 hours last night. continue tx plan. Medication Compliance: Yes Side effects from medications: No Mental Status Exam Mental Status Exam Narrative: Pt is alert and oriented; behavior is cooperative and calm; dressed in casual attire; mood is described as anxious ; eye contact appropriate; Speech is normal rate, volume and not pressured; thought process is organized and goal directed; Thought content is on tx; denies SI/HI/VH/AH. Diagnostics Vital Signs (24Hr): Vital Signs - 24 hr 07/01/25 14:01 07/01/25 20:00 07/02/25 02:47 Temperature 97.6 F Pulse Rate 60 Respiratory Rate 16 Blood Pressure 133/75 100/60 115/77 Pulse Oximetry 96 Oxygen Delivery Method Room Air 07/02/25 08:00 07/02/25 11:19 Temperature 97.4 F Pulse Rate 72 Respiratory Rate 18 Blood Pressure 128/82 96/65 Pulse Oximetry 97 Oxygen Delivery Method Room Air BMI result Body Mass Index 32.5 Labs 06/30/25 11:29 Medications Medications Current Medications Acetaminophen (Acetaminophen 325 Mg Tablet) 650 mg PO Q6H PRN PRN Reason: Headache/Pain, Scale 1-10 Last Admin: 07/02/25 08:48 Dose: 650 mg Al Hydroxide/Mg Hydroxide (Magnesium Hydrox/Alum Hydrox 30 Ml Oral.Susp) 30 ml PO Q6H PRN PRN Reason: Heartburn/Nausea Last Admin: 06/28/25 04:55 Dose: 30 ml Amlodipine Besylate (Amlodipine Besylate 5 Mg Tablet) 5 mg PO DAILY [facility]; Protocol Last Admin: 07/02/25 08:47 Dose: 5 mg Aripiprazole (Aripiprazole 10 Mg Tablet) 10 mg PO BEDTIME [facility] Last Admin: 07/01/25 20:41 Dose: 10 mg Clonidine HCl (Clonidine Hcl 0.1 Mg Tablet) 0.1 mg PO TID PRN; Protocol PRN Reason: Anxiety Last Admin: 07/02/25 11:19 Dose: 0.1 mg Dicyclomine HCl (Dicyclomine Hcl 10 Mg Capsule) 10 mg PO QIDACHS PRN PRN Reason: stomach cramps Last Admin: 07/02/25 02:46 Dose: 10 mg Docusate Sodium (Docusate Sodium 100 Mg Capsule) 100 mg PO BID [facility] Last Admin: 07/02/25 08:48 Dose: 100 mg Hydroxyzine HCl (Hydroxyzine Hcl 25 Mg Tablet) 25 mg PO Q6H PRN PRN Reason: mild anxiety Last Admin: 07/01/25 20:38 Dose: 25 mg Ibuprofen (Ibuprofen 800 Mg Tablet) 800 mg PO RQ8H PRN PRN Reason: muscle pain Last Admin: 07/02/25 02:49 Dose: 800 mg Magnesium Hydroxide (Milk Of Magnesia 30 Ml Oral.Susp) 30 ml PO DAILY PRN PRN Reason: Constipation Methadone HCl (Methadone Hcl 20 Mg/2 Ml Oral.Conc) 105 mg PO DAILY@0800 [facility] Last Admin: 07/02/25 07:00 Dose: 105 mg Nicotine (Nicotine 21 Mg Patch.Td24) 21 mg TRANSDERMA DAILY [facility] Last Admin: 07/02/25 08:45 Dose: 21 mg Nicotine Polacrilex (Nicotine Polacrilex 2 Mg Gum) 4 mg BUCCAL Q2H PRN PRN Reason: Nicotine Cravings Omeprazole (Omeprazole 20 Mg Capsule.Dr) 20 mg PO DAILY@0630 [facility] Last Admin: 07/02/25 06:11 Dose: 20 mg Polyethylene Glycol (Polyethylene Glycol 3350 17 Gm Powd.Pack) 17 gm PO DAILY [facility] Last Admin: 07/02/25 08:50 Dose: Not Given Pregabalin (Pregabalin 150 Mg Capsule) 150 mg PO TID [facility] Last Admin: 07/02/25 08:47 Dose: 150 mg Quetiapine Fumarate (Quetiapine Fumarate 50 Mg Tablet) 50 mg PO BEDTIME [facility] Last Admin: 07/01/25 20:42 Dose: 50 mg Quetiapine Fumarate (Quetiapine Fumarate 50 Mg Tablet) 50 mg PO TID PRN PRN Reason: anxiety and/or insomnia Last Admin: 07/02/25 02:47 Dose: 50 mg Senna (Sennosides 8.6 Mg Tablet) 17.2 mg PO BEDTIME [facility] Last Admin: 07/01/25 20:39 Dose: 17.2 mg Sucralfate (Sucralfate 1 Gm Tablet) 1 gm PO QID [facility] Last Admin: 07/02/25 12:23 Dose: 1 gm Allergies Allergies Allergy/AdvReac Type Severity Reaction Status Date / Time No Known Allergies Allergy Verified 06/27/25 23:49 Assessment & Plan Assessment & Plan (1) Depressive disorder: Status: Acute Code(s): F32.A - Depression, unspecified (2) Posttraumatic stress disorder: Status: Acute Code(s): F43.10 - Post-traumatic stress disorder, unspecified (3) Opioid use disorder, severe, on maintenance therapy: Status: Acute Code(s): F11.20 - Opioid dependence, uncomplicated Plan Mr. Pressely is a 54 yo M with h/o depression, PTSD, ADHD, dyslexia, previous bipolar dx, opioid use d/o on maintenance tx and HCV in remission s/p Gary who presented to [facility] ED due to SI. He was transferred to [facility] for tx of depression/SI after undergoing medical clearance. Plan: Admitted to for safety and stabilization Signed CV 15 min safety checks VS per unit standard. Reviewed labs from [facility]- CMP wnl aside from elevated blood glucose, CBC essentially wnl 06/28- -Pt is agreeable w/ starting risperidone off-label for severe anxiety/PTSD sx, starting with 0.5 mg qhs standing dose + .25 mg bid prn for anxiety -risperidone 1 mg bid prn ordered for agitation -D/C'd prn trazodone order since pt doesn't want to take it (caused nightmares in the past). -Continue pregabalin 150 mg tid for chronic pain -Continue methadone 105 mg qam -NRT ordered 06/29- PRN clonidine, ibuprofen and bentyl ordered for opioid w/d sx d/c'd standing/prn risperidone. Switched to seroquel 50 mg qhs + 50 mg tid prn for anxiety and/or agitation. Reviewed EKG- QTc 435 ms today Admission medical consult done by hospitalist. Input appreciated HTN- started on amlodipine 5 mg qd EKG with RBBB- per hospitalist- likely not new but no comparison EKg available. Cardiology consulted. Patient advised to also seek cardiology referral with his PCP in fall noting history of overdose and report of cardiac arrest requiring Narcan Patient also educated to notify nursing if he has any chest pain or unusual upper chest symptoms Patient advised to stop using illicit drugs including fentanyl due to the risk of overdose and cardiac event GERD Continue sucralfate Omeprazole added Avoid food triggers Constipation Patient is started on MiraLax Senna on board Milk of jake [place] Obesity Nutritional consultation requested Patient counseled on the benefits of weight loss A1c pending Substance use disorder on methadone Continue methadone QTC stable at 450 Tobacco dependence Patient currently on nicotine patch Nicotine gum p.r.n. Patient counseled on the benefits of smoking cessation History of hepatitis-C in remission Patient states hepatitis-C stemmed from previous history of IV drug use Patient completed treatment and is no longer testing positive Patient has stopped using IV drugs once treatment started, no indication to repeat hepatitis testing at this time Hospitalist group will continue to monitor to review labs and for collaboration regarding cardiology consultation and possible needs. 06/30: Active on unit. Patient reports having lots of anxiety d/t being around people ; denies SI/HI/VH/AH. Focused on going to a substance abuse program; pt stated, I don't care where I get into. I just don't want to go back to [place] ; social insurance specialist aware.Patient reports he was taking medications years ago for depression/anxiety; however, was unable to recall names. Discussed starting on Abilify; risks/benefits reviewed, pt agreed to trial. Start: Abilify 5mg PO bedtime. 07/01: Active on unit. keeping to self. Patient continues to report having high anxiety; encouraged to attend groups to learn coping skills. denies SI/HI/VH/AH. Focused on going to a substance abuse program after discharge; social insurance specialistDoreen, working on referrals; pt aware. Patient denies any side effects from starting Abilify; Abilify increased to 10mg PO bedtime. 07/02: Active on unit. keeping to self. Patient continues to report feeling fine but still anxious ; focused on going to substance abuse program. denies SI/HI/VH/AH. Patient denies any side effects from Abilify. per nursing, slept 7 hours last night. continue tx plan. Patient educated on: diagnosis, medication risk/benefits and therapeutic strategies Reason for continued inpatient stay Substantial Risk for: med/psych decompensation Time Spent With Patient Time: Total time managing care of this patient today _20___ minutes.
[2025-07-02 20:00] VITALS: BP 103/60; PULSE 52; RESP 16; TEMP 36.5; O2SAT 98
[2025-07-03 03:44] VITALS: BP 144/82
[2025-07-03 07:00] VITALS: BMI 32.5
[2025-07-03] MEDS: methADONE HCl 20 MG/2 ML ORAL.CONC 105 MG PO (07:00)
[2025-07-03 07:59] VITALS: BP 116/63; PULSE 60; RESP 14; TEMP 36.4; O2SAT 96
[2025-07-03] MEDS: Nicotine 21 MG PATCH.TD24 TRANSDERMA (08:22)
--- NOTE | 2025-07-03 09:19 | P.PNPSI_ITS ---
Subjective Subjective Reason For Visit: decompensation Diagnostics Vital Signs (24Hr): Vital Signs - 24 hr 07/02/25 11:19 07/02/25 20:00 07/03/25 03:44 Temperature 97.7 F Pulse Rate 52 Respiratory Rate 16 Blood Pressure 96/65 103/60 144/82 H Pulse Oximetry 98 Oxygen Delivery Method Room Air 07/03/25 07:59 Temperature 97.5 F Pulse Rate 60 Respiratory Rate 14 Blood Pressure 116/63 Pulse Oximetry 96 Oxygen Delivery Method Room Air BMI result Body Mass Index 32.5 Labs 06/30/25 11:29 Medications Medications Current Medications Acetaminophen (Acetaminophen 325 Mg Tablet) 650 mg PO Q6H PRN PRN Reason: Headache/Pain, Scale 1-10 Last Admin: 07/02/25 08:48 Dose: 650 mg Al Hydroxide/Mg Hydroxide (Magnesium Hydrox/Alum Hydrox 30 Ml Oral.Susp) 30 ml PO Q6H PRN PRN Reason: Heartburn/Nausea Last Admin: 06/28/25 04:55 Dose: 30 ml Amlodipine Besylate (Amlodipine Besylate 5 Mg Tablet) 5 mg PO DAILY EVONNE; Protocol Last Admin: 07/03/25 08:23 Dose: 5 mg Aripiprazole (Aripiprazole 10 Mg Tablet) 10 mg PO BEDTIME EVONNE Last Admin: 07/02/25 20:20 Dose: 10 mg Clonidine HCl (Clonidine Hcl 0.1 Mg Tablet) 0.1 mg PO TID PRN; Protocol PRN Reason: Anxiety Last Admin: 07/03/25 03:44 Dose: 0.1 mg Dicyclomine HCl (Dicyclomine Hcl 10 Mg Capsule) 10 mg PO QIDACHS PRN PRN Reason: stomach cramps Last Admin: 07/02/25 02:46 Dose: 10 mg Docusate Sodium (Docusate Sodium 100 Mg Capsule) 100 mg PO BID EVONNE Last Admin: 07/03/25 08:23 Dose: 100 mg Hydroxyzine HCl (Hydroxyzine Hcl 25 Mg Tablet) 25 mg PO Q6H PRN PRN Reason: mild anxiety Last Admin: 07/01/25 20:38 Dose: 25 mg Ibuprofen (Ibuprofen 800 Mg Tablet) 800 mg PO RQ8H PRN PRN Reason: muscle pain Last Admin: 07/03/25 03:44 Dose: 800 mg Magnesium Hydroxide (Milk Of Magnesia 30 Ml Oral.Susp) 30 ml PO DAILY PRN PRN Reason: Constipation Methadone HCl (Methadone Hcl 20 Mg/2 Ml Oral.Conc) 105 mg PO DAILY@0800 COUNTS INCLUDE 234 BEDS AT THE [facility] Last Admin: 07/03/25 07:00 Dose: 105 mg Nicotine (Nicotine 21 Mg Patch.Td24) 21 mg TRANSDERMA DAILY COUNTS INCLUDE 234 BEDS AT THE [facility] Last Admin: 07/03/25 08:22 Dose: 21 mg Nicotine Polacrilex (Nicotine Polacrilex 2 Mg Gum) 4 mg BUCCAL Q2H PRN PRN Reason: Nicotine Cravings Omeprazole (Omeprazole 20 Mg Capsule.Dr) 20 mg PO DAILY@0630 COUNTS INCLUDE 234 BEDS AT THE [facility] Last Admin: 07/03/25 05:26 Dose: 20 mg Polyethylene Glycol (Polyethylene Glycol 3350 17 Gm Powd.Pack) 17 gm PO DAILY COUNTS INCLUDE 234 BEDS AT THE [facility] Last Admin: 07/03/25 08:22 Dose: Not Given Pregabalin (Pregabalin 150 Mg Capsule) 150 mg PO TID COUNTS INCLUDE 234 BEDS AT THE [facility] Last Admin: 07/03/25 08:23 Dose: 150 mg Quetiapine Fumarate (Quetiapine Fumarate 50 Mg Tablet) 50 mg PO BEDTIME COUNTS INCLUDE 234 BEDS AT THE [facility] Last Admin: 07/02/25 20:20 Dose: 50 mg Quetiapine Fumarate (Quetiapine Fumarate 50 Mg Tablet) 50 mg PO TID PRN PRN Reason: anxiety and/or insomnia Last Admin: 07/02/25 02:47 Dose: 50 mg Senna (Sennosides 8.6 Mg Tablet) 17.2 mg PO BEDTIME COUNTS INCLUDE 234 BEDS AT THE [facility] Last Admin: 07/02/25 20:20 Dose: 17.2 mg Sucralfate (Sucralfate 1 Gm Tablet) 1 gm PO QID COUNTS INCLUDE 234 BEDS AT THE [facility] Last Admin: 07/03/25 08:23 Dose: 1 gm Allergies Allergies Allergy/AdvReac Type Severity Reaction Status Date / Time No Known Allergies Allergy Verified 06/27/25 23:49 Assessment & Plan Assessment & Plan (1) Depressive disorder: Status: Acute Code(s): F32.A - Depression, unspecified (2) Posttraumatic stress disorder: Status: Acute Code(s): F43.10 - Post-traumatic stress disorder, unspecified (3) Opioid use disorder, severe, on maintenance therapy: Status: Acute Code(s): F11.20 - Opioid dependence, uncomplicated Plan Mr. Pressley is a 54 yo M with h/o depression, PTSD, ADHD, dyslexia, previous bipolar dx, opioid use d/o on maintenance tx and HCV in remission s/p [place] who presented to [facility] ED due to SI. He was transferred to [facility] for tx of depression/SI after undergoing medical clearance. Plan: Admitted to [facility] for safety and stabilization Signed CV 15 min safety checks VS per unit standard. Reviewed labs from [facility]- CMP wnl aside from elevated blood glucose, CBC essentially wnl 06/28- -Pt is agreeable w/ starting risperidone off-label for severe anxiety/PTSD sx, starting with 0.5 mg qhs standing dose + .25 mg bid prn for anxiety -risperidone 1 mg bid prn ordered for agitation -D/C'd prn trazodone order since pt doesn't want to take it (caused nightmares in the past). -Continue pregabalin 150 mg tid for chronic pain -Continue methadone 105 mg qam -NRT ordered 06/29- PRN clonidine, ibuprofen and bentyl ordered for opioid w/d sx d/c'd standing/prn risperidone. Switched to seroquel 50 mg qhs + 50 mg tid prn for anxiety and/or agitation. Reviewed EKG- QTc 435 ms today Admission medical consult done by hospitalist. Input appreciated HTN- started on amlodipine 5 mg qd EKG with RBBB- per hospitalist- likely not new but no comparison EKg available. Cardiology consulted. Patient advised to also seek cardiology referral with his PCP in fall noting history of overdose and report of cardiac arrest requiring Narcan Patient also educated to notify nursing if he has any chest pain or unusual upper chest symptoms Patient advised to stop using illicit drugs including fentanyl due to the risk of overdose and cardiac event GERD Continue sucralfate Omeprazole added Avoid food triggers Constipation Patient is started on MiraLax Senna on board Milk of magnesia PRN Obesity Nutritional consultation requested Patient counseled on the benefits of weight loss A1c pending Substance use disorder on methadone Continue methadone QTC stable at 450 Tobacco dependence Patient currently on nicotine patch Nicotine gum p.r.n. Patient counseled on the benefits of smoking cessation History of hepatitis-C in remission Patient states hepatitis-C stemmed from previous history of IV drug use Patient completed treatment and is no longer testing positive Patient has stopped using IV drugs once treatment started, no indication to repeat hepatitis testing at this time Hospitalist group will continue to monitor to review labs and for collaboration regarding cardiology consultation and possible needs. 06/30: Active on unit. Patient reports having lots of anxiety d/t being around people ; denies SI/HI/VH/AH. Focused on going to a substance abuse program; pt stated, I don't care where I get into. I just don't want to go back to [place] ; medical social worker aware.Patient reports he was taking medications years ago for depression/anxiety; however, was unable to recall names. Discussed starting on Abilify; risks/benefits reviewed, pt agreed to trial. Start: Abilify 5mg PO bedtime. 07/01: Active on unit. keeping to self. Patient continues to report having high anxiety; encouraged to attend groups to learn coping skills. denies SI/HI/VH/AH. Focused on going to a substance abuse program after discharge; medical social workerDoreen, working on referrals; pt aware. Patient denies any side effects from starting Abilify; Abilify increased to 10mg PO bedtime. 07/02: Active on unit. keeping to self. Patient continues to report feeling fine but still anxious ; focused on going to substance abuse program. denies SI/HI/VH/AH. Patient denies any side effects from Abilify. per nursing, slept 7 hours last night. continue tx plan. Time Spent With Patient Time: Total time managing care of this patient today ____ minutes.
[2025-07-03 09:44] VITALS: BP 110/79
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
== END 2025-07-03 11:02 | disposition home or self-care (01) | DRG 754 ==
PROVIDERS: Nurse Practitioner Family; Admitting Provider Psychiatry & Neurology Psychiatry; Responsible Provider Registered Nurse; Visit Provider Psychiatry & Neurology Psychiatry
DX: F32.A Depression, unspecified (principal); E66.9 Obesity, unspecified; F17.210 Nicotine dependence, cigarettes, uncomplicated; F11.20 Opioid dependence, uncomplicated; I10 Essential (primary) hypertension; K21.9 Gastro-esophageal reflux disease without esophagitis; I45.10 Unspecified right bundle-branch block; K59.00 Constipation, unspecified; F43.10 Post-traumatic stress disorder, unspecified; Z68.32 Body mass index [BMI] 32.0-32.9, adult; Z86.19 Personal history of other infectious and parasitic diseases; Z71.3 Dietary counseling and surveillance; Z71.6 Tobacco abuse counseling; Z79.899 Other long term (current) drug therapy
CPT/HCPCS: 36415; 80053; 80061; 83036; 83735; 83880; 84443; 93005; 93306; Q9957

== ENCOUNTER 2025-06-27 22:23 | Outpatient (BNV) | payer OTHER, SELFPAY | END 2025-07-01 07:00 | PROVIDERS: Admitting Provider Psychiatry & Neurology Psychiatry; Responsible Provider Registered Nurse; Visit Provider Internal Medicine Cardiovascular Disease | DX: R94.31 Abnormal electrocardiogram [ECG] [EKG] (principal); I45.10 Unspecified right bundle-branch block | CPT/HCPCS: 93306 ==

== ENCOUNTER → 2025-06-27 22:23 | Outpatient (BNV) | payer OTHER, SELFPAY | PROVIDERS: Admitting Provider Psychiatry & Neurology Psychiatry; Visit Provider Nurse Practitioner Family | DX: I10 Essential (primary) hypertension (principal); K21.9 Gastro-esophageal reflux disease without esophagitis | CPT/HCPCS: 99223; 99499 ==

== ENCOUNTER → 2025-06-27 22:23 | Outpatient (BNV) | payer OTHER, SELFPAY | PROVIDERS: Admitting Provider Psychiatry & Neurology Psychiatry; Visit Provider Psychiatry & Neurology Psychiatry | DX: F32.2 Major depressive disorder, single episode, severe without psychotic features (principal); F11.20 Opioid dependence, uncomplicated; F43.11 Post-traumatic stress disorder, acute; F17.200 Nicotine dependence, unspecified, uncomplicated | CPT/HCPCS: 90792; 99231; 99232; 99238 ==